=== PATIENT | male | born 1940 | race Two or more races ===

== ENCOUNTER 2017-01-07 23:49 | Inpatient (IN) | payer MEDICARE ==
[~2017-01-07] VITALS: Ht 167.6 cm; Wt 86.2 kg
[2017-01-08] VITALS (26 sets, daily range): BP systolic 104–166; BP diastolic 51–94
[2017-01-08] MEDS ORDERED: PIP/TAZO PER PHARMACY MC PRN (02:15)
[2017-01-08] MEDS ORDERED: IV NORMAL SALINE 1000ML BAG 1,000 ML IV SCH ×2 (02:15→02:30)
[2017-01-08] MEDS: VANCOMYCIN PER PHARMACY MC PRN ×2 (03:01→12:19)
[2017-01-08 04:50] LABS: CALCIUM 7.7 mg/dL (8.5-10.1); CREATININE 7.1 mg/dL (0.7-1.3); GFR 7.6
[2017-01-08 05:18] LABS: BASO % 0 % (0-3); EOS % 0 % (0-3); HEMATOCRIT 25.8 % (39.0-53.0); HEMOGLOBIN 8.4 g/dL (13.0-17.5); LYMPH # 0.9 x10^3/uL (1.0-4.8); LYMPH % 4 % (24-48); MEAN CORPUSCULAR HEMOGLOBIN 29 pg (25-35); MEAN CORPUSCULAR HGB CONC 33 g/dL (31-37); MEAN CORPUSCULAR VOLUME 89 fL (79-100); MONO % 4 % (0-9); NEUT % 92 % (31-73); PLATELET COUNT 199 x10^3/uL (140-400); RED BLOOD COUNT 2.91 x10^6/uL (4.30-5.70); RED CELL DISTRIBUTION WIDTH 14.6 % (11.5-14.5); WHITE BLOOD COUNT 25.7 x10^3/uL (4.0-11.0)
[2017-01-08] MEDS: PIPERACILLIN/TAZOBACTAM 2.25 GM in IV NORMAL SALINE 50ML 50 ML IV SCH ×3 (05:39→22:17)
[2017-01-08 06:14] LABS: BILIRUBIN,URINE NEGATIVE (NEG); GLUCOSE,URINE NEGATIVE (NEG); NITRITE,URINE NEGATIVE (NEG); PH,URINE 5.5; PROTEIN,URINE NEGATIVE (NEG-TRACE); UROBILINOGEN,URINE 0.2 mg/dL (0.2 mg/dL)
[2017-01-08 06:23] LABS: BACTERIA,URINE FEW /HPF (0-FEW)
[2017-01-08 07:49] LABS: ANISOCYTOSIS SLIGHT; PLT ESTIMATE ADEQUATE (ADEQUATE)
--- NOTE | 2017-01-08 07:54 | EKG ---
[facility] [address] [place] [address] Test Date: 2017-01-08 Test Time: 07:51:30 Pat Name: LIZETH GONZALES Department: Room: 105 1 Gender: M Commercial Correspondent: LENCHO : 1940 Requested By: MIKE HUMPHREY Order Number: [id number] Reading MD: Measurements Intervals [place] Rate: 72 P: 54 WA: 162 QRS: 44 QRSD: 104 T: -51 QT: 402 QTc: 442 Interpretive Statements SINUS RHYTHM QRS(T) CONTOUR ABNORMALITY CONSISTENT WITH INFERIOR INFARCT AGE UNDETERMINED ST & T ABNORMALITY, CONSIDER ANTEROLATERAL ISCHEMIA OR LEFT VENTRICULAR STRAIN ABNORMAL ECG RI6.01 No previous ECG available for comparison
[2017-01-08] MEDS ORDERED: MULT1TAB52 PO (09:17)
[2017-01-08] MEDS ORDERED: ASPI-482 PO (09:17)
[2017-01-08] MEDS ORDERED: CLON0.1T PO (09:17)
[2017-01-08] MEDS ORDERED: ASCO500T PO (09:17)
[2017-01-08] MEDS ORDERED: CEPH250C PO (09:17)
[2017-01-08] MEDS ORDERED: GABA600T2 PO (09:17)
[2017-01-08] MEDS ORDERED: LOSA1TAB19 PO (09:17)
[2017-01-08] MEDS ORDERED: OMEG1CAP6 PO (09:17)
[2017-01-08] MEDS ORDERED: PRAV20TA2 PO (09:17)
[2017-01-08] MEDS ORDERED: BISA-42 PO (09:17)
[2017-01-08] MEDS ORDERED: FUROSEMIDE 20 MG/2 ML VIAL. IVP ONE (09:45)
--- NOTE | 2017-01-08 10:27 | RAD ---
Indication fluid overload. A single view of the chest was obtained. No prior imaging of the chest is available. There is mild enlargement of the cardiac silhouette. There are interstitial changes compatible with mild interstitial edema. No consolidated pneumonia is seen. There is no pleural fluid or pneumothorax. IMPRESSION: Mild interstitial edema
[2017-01-08] MEDS ORDERED: FUROSEMIDE 100 MG/10 ML VIAL. IVP ONE (10:30)
[2017-01-08] MEDS ORDERED: HEPARIN for IV BOLUS 10,000 UNIT/10 ML VIAL. ONE (10:43)
[2017-01-08] MEDS ORDERED: CALCIUM GLUCONATE 1,000 MG/10 ML VIAL. IVP ONE (10:45)
[2017-01-08] MEDS ORDERED: MAGNESIUM SULFATE 2GM 50 ML IV PRN (10:45)
[2017-01-08] MEDS ORDERED: SODIUM BICARB ADULT 8.4% 50 MEQ/50 ML DISP.SYRIN. IV ONE ×2 (10:45)
[2017-01-08] MEDS ORDERED: LIDOCAINE 1% / SOD BICARB 8.4% 20 ML VIAL. IJ ONE (10:45)
[2017-01-08] MEDS ORDERED: BISACODYL 10 MG SUPP.RECT. PR PRN (10:45)
--- NOTE | 2017-01-08 10:53 | PDOC2 ---
CONSULT Date of Consult Date of Consult DATE: 01/08/17 TIME: 10:42 Reason for Consult Reason for Consult: Renal Failure Referring Physician Referring Physician: Dr Wilkins Identification/Chief Complaint Chief Complaint SOB Problems: Source Source: Chart review, Patient Social History Lives: with Family Current Medications Current Medications Current Medications Sodium Chloride 1,000 ml @ 150 mls/hr CONT IV ; Start 01/08/17 at 02:15; Status UNV Piperacillin Sod/ Tazobactam Sod (Zosyn Per Pharmacy) 1 each PRN DAILY PRN MC SEE COMMENTS; Start 01/08/17 at 02:15 Vancomycin HCl (Vanco Per Pharmacy) 1 each PRN DAILY PRN MC SEE COMMENTS Last administered on 01/08/17 03:01; Start 01/08/17 at 02:15 Sodium Chloride 1,000 ml @ 150 mls/hr Q6H40M IV Last administered on 03:34; Start 01/08/17 at 02:30 Vancomycin HCl 1 each 1X ONCE MC ; Start 01/09/17 at 22:30; Stop 01/09/17 at 22:31 Piperacillin Sod/ Tazobactam Sod 2.25 gm/Sodium Chloride 50 ml @ 100 mls/hr Q8H IV Last administered on 01/08/17 05:39; Start 01/08/17 at 06:00 Furosemide (Lasix) 20 mg 1X ONCE IVP Last administered on 01/08/17 09:45; Start 01/08/17 at 09:45; Stop 01/08/17 at 09:46; Status DC Furosemide (Lasix) 80 mg 1X ONCE IVP ; Start 01/08/17 at 10:30; Stop at 10:33; Status DC Active Scripts Active Reported Vitamin C (Ascorbic Acid) 500 Mg Tab.chew 500 Mg PO DAILY Multivitamins (Multivitamin) 1 Each Tablet 1 Tab PO DAILY Fish Oil 1,000 Mg Capsule ([place]-3 Fatty Acids/Fish Oil) 1 Each Capsule 1 Each PO Pravastatin Sodium 20 Mg Tablet 1 Tab PO QHS Clonidine Hcl 0.1 Mg Tablet 0.1 Mg PO TID Dulcolax (Bisacodyl) 5 Mg Tablet. 2 Tab PO DAILY Aspir 81 (Aspirin) 81 Mg Tablet.dr 1 Tab PO DAILY Cephalexin 250 Mg Capsule 250 Mg PO BID Gabapentin 600 Mg Tablet 600 Mg PO TID Losartan-Hctz 50-12.5 Mg Tab (Losartan/Hydrochlorothiazide) 1 Each Tablet 1 Tab PO DAILY Allergies Allergies: Coded Allergies: No Known Drug Allergies (Unverified , 01/08/17) ROS Review of System GEN: no Fevers no Chills EYES: no new Visual Complaints ENT: no EN Drainage no Hearing deficiets CVS: + Orthopnea no CP RESP: + SOB + VILLEDA GI: min Nausea no Vomiting + Diarrhea : no Dysuria no Urgency Pt self-caths HEME: no easy bruising no Palp Ly Nodes NEURO no Focal Weakness no Sz PSYCH: no Suicidal Ideation no Depression SKIN: no Rashes ENDO: no Polyuria or Polydipsia no Hot/Cold Intolerance MU SK: occ Arthraigia no Myalgia Physical Exam Physical Exam General Appearance: Awake Alert Oriented x 2-3 In mod-sev resp Distress Eyes: VIsion Unchanged Conjunctiva Normal EN: No EN Drainage Mucous Memb. moist Neck: no JVD + JVP Supple no Thyromegaly CVS: S1 S2 ? Murmur No Gallop No Rub tr Edema Resp: jose Rales ++ Rhonchi ++ Acc. Muscle use GI: BAS +ve NO Bruit Non Tender Non Distended : no CVA tenderness; no Suprapubic Tenderness SKIN: no Rashes Breast Exam deferred Mu.Sk: Adequate ROM no Muscle Atrophy Heme: Unable to palpate Obvious LAD no palp Splenomegaly NEURO: Good Strength and Tone pt is too restless to co-operate with exam Psych: ? Depressed no Active hallucination Vital Signs Vital Signs Date Time Temp Pulse Resp B/P (MAP) Pulse Ox O2 Delivery O2 Flow Rate FiO2 01/08/17 09:00 67 22 138/64 (88) 95 Room Air 01/08/17 07:00 97.5 97.5 Assessment & Plan ESRD : Emergent Dialysis as below F 180 NR 3.5 Hrs 3 K 2.5 Ca 140 Na 40 HC03 Qb 350 + Qd 500+ Heparin 0 Units Uf 3 Kgs or to dry weight as tolerated May give 25-50 gms of 25% Albumin if needed to maintain Hemodynamic stability Treatment plan reviewed and discussed with small arms repairer SEe dictation for other details - including co-ordinating HD Access placement. CCT - 1020 - 1055am (~ 35 min) Labs Labs Laboratory Tests Test 01/08/17 04:00 01/08/17 04:09 White Blood Count 25.7 x10^3/uL (4.0-11.0) Red Blood Count 2.91 x10^6/uL (4.30-5.70) Hemoglobin 8.4 g/dL (13.0-17.5) Hematocrit 25.8 % (39.0-53.0) Mean Corpuscular Volume 89 fL (79-100) Mean Corpuscular Hemoglobin 29 pg (25-35) Mean Corpuscular Hemoglobin Concent 33 g/dL (31-37) Red Cell Distribution Width 14.6 % (11.5-14.5) Platelet Count 199 x10^3/uL (140-400) Neutrophils (%) (Auto) 92 % (31-73) Lymphocytes (%) (Auto) 4 % (24-48) Monocytes (%) (Auto) 4 % (0-9) Eosinophils (%) (Auto) 0 % (0-3) Basophils (%) (Auto) 0 % (0-3) Neutrophils # (Auto) 23.8 x10^3uL (1.8-7.7) Lymphocytes # (Auto) 0.9 x10^3/uL (1.0-4.8) Monocytes # (Auto) 1.0 x10^3/uL (0.0-1.1) Eosinophils # (Auto) 0.0 x10^3/uL (0.0-0.7) Basophils # (Auto) 0.0 x10^3/uL (0.0-0.2) Segmented Neutrophils % 83 % (35-66) Band Neutrophils % 9 % (0-9) Lymphocytes % 2 % (24-48) Atypical Lymphocytes % (Manual) 1 % (0-0) Monocytes % 4 % (0-10) Metamyelocytes % 1 % (0-0) Dohle Bodies Few Platelet Estimate Adequate (ADEQUATE) Anisocytosis Slight Sodium Level 140 mmol/L (136-145) Potassium Level 5.0 mmol/L (3.5-5.1) Chloride Level 109 mmol/L (98-107) Carbon Dioxide Level 14 mmol/L (21-32) Anion Gap 17 (6-14) Blood Urea Nitrogen 86 mg/dL (8-26) Creatinine 7.1 mg/dL (0.7-1.3) Estimated GFR (Cockcroft-Gault) 7.6 Glucose Level 163 mg/dL (70-99) Lactic Acid Level 0.7 mmol/L (0.4-2.0) Calcium Level 7.7 mg/dL (8.5-10.1) Urine Collection Type Unknown Urine Color Yellow Urine Clarity Clear Urine pH 5.5 Urine Specific [place] <=1.005 Urine Protein Negative mg/dL (NEG-TRACE) Urine Glucose (UA) Negative mg/dL (NEG) Urine Ketones (Stick) Negative mg/dL (NEG) Urine Blood Moderate (NEG) Urine Nitrite Negative (NEG) Urine Bilirubin Negative (NEG) Urine Urobilinogen Dipstick 0.2 mg/dL (0.2 mg/dL) Urine Leukocyte Esterase Small (NEG) Urine RBC 1-2 /HPF (0-2) Urine WBC 5-10 /HPF (0-4) Urine Bacteria Few /HPF (0-FEW) Laboratory Tests Test 01/08/17 04:00 01/08/17 04:09 White Blood Count 25.7 x10^3/uL (4.0-11.0) Red Blood Count 2.91 x10^6/uL (4.30-5.70) Hemoglobin 8.4 g/dL (13.0-17.5) Hematocrit 25.8 % (39.0-53.0) Mean Corpuscular Volume 89 fL (79-100) Mean Corpuscular Hemoglobin 29 pg (25-35) Mean Corpuscular Hemoglobin Concent 33 g/dL (31-37) Red Cell Distribution Width 14.6 % (11.5-14.5) Platelet Count 199 x10^3/uL (140-400) Neutrophils (%) (Auto) 92 % (31-73) Lymphocytes (%) (Auto) 4 % (24-48) Monocytes (%) (Auto) 4 % (0-9) Eosinophils (%) (Auto) 0 % (0-3) Basophils (%) (Auto) 0 % (0-3) Neutrophils # (Auto) 23.8 x10^3uL (1.8-7.7) Lymphocytes # (Auto) 0.9 x10^3/uL (1.0-4.8) Monocytes # (Auto) 1.0 x10^3/uL (0.0-1.1) Eosinophils # (Auto) 0.0 x10^3/uL (0.0-0.7) Basophils # (Auto) 0.0 x10^3/uL (0.0-0.2) Segmented Neutrophils % 83 % (35-66) Band Neutrophils % 9 % (0-9) Lymphocytes % 2 % (24-48) Atypical Lymphocytes % (Manual) 1 % (0-0) Monocytes % 4 % (0-10) Metamyelocytes % 1 % (0-0) Dohle Bodies Few Platelet Estimate Adequate (ADEQUATE) Anisocytosis Slight Sodium Level 140 mmol/L (136-145) Potassium Level 5.0 mmol/L (3.5-5.1) Chloride Level 109 mmol/L (98-107) Carbon Dioxide Level 14 mmol/L (21-32) Anion Gap 17 (6-14) Blood Urea Nitrogen 86 mg/dL (8-26) Creatinine 7.1 mg/dL (0.7-1.3) Estimated GFR (Cockcroft-Gault) 7.6 Glucose Level 163 mg/dL (70-99) Lactic Acid Level 0.7 mmol/L (0.4-2.0) Calcium Level 7.7 mg/dL (8.5-10.1) Urine Collection Type Unknown Urine Color Yellow Urine Clarity Clear Urine pH 5.5 Urine Specific [place] <=1.005 Urine Protein Negative mg/dL (NEG-TRACE) Urine Glucose (UA) Negative mg/dL (NEG) Urine Ketones (Stick) Negative mg/dL (NEG) Urine Blood Moderate (NEG) Urine Nitrite Negative (NEG) Urine Bilirubin Negative (NEG) Urine Urobilinogen Dipstick 0.2 mg/dL (0.2 mg/dL) Urine Leukocyte Esterase Small (NEG) Urine RBC 1-2 /HPF (0-2) Urine WBC 5-10 /HPF (0-4) Urine Bacteria Few /HPF (0-FEW) Images Images Indication fluid overload. A single view of the chest was obtained. No prior imaging of the chest is available. There is mild enlargement of the cardiac silhouette. There are interstitial changes compatible with mild interstitial edema. No consolidated pneumonia is seen. There is no pleural fluid or pneumothorax. IMPRESSION: Mild interstitial edema SHEKHAR LOWE MD Jan 08, 2017 10:53
[2017-01-08] MEDS ORDERED: CALCIUM GLUCONATE IV ONE (11:00)
[2017-01-08] MEDS ORDERED: DEXTROSE 5% IV ONE (11:00)
[2017-01-08] MEDS ORDERED: IV NORMAL SALINE 1000ML BAG 1,000 ML IV PRN ×2 (11:10)
[2017-01-08] MEDS ORDERED: DIALYSIS PATIENT. MC PRN (11:15)
[2017-01-08] MEDS ORDERED: LABETALOL 20 MG/4 ML DISP.SYRIN. IVP PRN (11:15)
[2017-01-08] MEDS ORDERED: MIDODRINE 5 MG TABLET PO ONE (11:15)
[2017-01-08] MEDS ORDERED: cloNIDine HCL 0.1 MG TABLET PO PRN (11:15)
[2017-01-08] MEDS ORDERED: ALBUMIN HUMAN 25% 200 ML IV PRN (11:15)
[2017-01-08] MEDS ORDERED: ACETAMINOPHEN 500 MG TABLET PO PRN (11:15)
[2017-01-08] MEDS ORDERED: diphenhydrAMINE 50 MG/ML VIAL IV PRN ×2 (11:15)
--- NOTE | 2017-01-08 11:42 | RAD ---
Ultrasound-guided temporary dialysis catheter 01/08/2017 Clinical Indication: Need for central venous access for dialysis Sterility: All elements of maximal sterile barrier technique including the use of a cap, mask, sterile gown, sterile gloves, large sterile sheet, appropriate hand hygiene, and 2% chlorhexidine for cutaneous antisepsis (or acceptable alternative antiseptic per current guidelines) were followed for this procedure. Consent: The procedure was explained in its entirety to the patient or the patients designated junior sales representative by a member of the treatment team, including a discussion of the risks, benefits and commonly accepted alternatives to the procedure, as well as the expected consequences of no therapy whatsoever. Discussion of the risks included, but was not limited to, those that are most frequent and those that are rare but possibly severe or life-threatening, as well as the possibility of unforeseen complications. Technique and Findings: Following informed consent, the patient was prepped and draped in the usual sterile fashion. Ultrasound interrogation of the right neck revealed patency and compressibility of the right internal jugular vein. A 21-gauge micropuncture needle was used to gain access to this vein after 1% Lidocaine was used to achieve local anesthesia. A hardcopy ultrasound image was recorded. The needle was exchanged over a wire for serial dilators followed by a 20 cm temporary hemodialysis catheter. The catheter flow rates were assessed manually and found to be excellent. The catheter was then flushed, packed with Heparin, capped, and sutured to the skin. Impression: Temporary dialysis catheter by ultrasound guidance at the bedside
--- NOTE | 2017-01-08 11:43 | RAD ---
Single view of the Chest 01/08/2017 1:13 PM Indication: PLACEMENT OF TEMP DIALYSIS CATHETER Comparison: Chest radiograph, earlier today Findings: There is a right internal jugular temporary dialysis catheter with tip the cavoatrial junction. Mild central vascular congestion and interstitial edema is present. Minimal fluid is seen in the right minor fissure consistent with small right pleural effusion. No pneumothorax. Heart size is top normal. Bony thorax is intact. Impression: 1. Right internal jugular dialysis catheter with tip the cavoatrial junction3 2. Persistent interstitial edema and small right pleural effusion
[2017-01-08 11:51] LABS: % SAT IRON 10 % (15-34); IRON,SERUM 21 ug/dL (65-175)
--- NOTE | 2017-01-08 12:19 | HP ---
ADMIT DATE: 01/08/2017 CHIEF COMPLAINT: Renal failure, fevers. HISTORY OF PRESENT ILLNESS: The patient is a 77-year-old gentleman, originally from [place], currently visiting in [place] to witness the promotion of his son to Lieutenant [employer]. He presented to [facility] complaining of rigors, fever, generalized malaise, myalgias and arthralgias. He had temperatures, according to the , up to 103 at the son's home. It had been coming up from [place] with Keflex for a question infection, possibly urinary tract, although neither the patient nor family is sure where the infection is. He does have a history of renal insufficiency with plans for starting dialysis upon his return to [place]. He denies any sick contacts, any upper respiratory symptoms, diarrhea, nausea or vomiting. PAST MEDICAL HISTORY: End-stage renal disease, hypertension, status post TURP, chronic constipation and history of UTI. FAMILY HISTORY: Positive for diabetes. SOCIAL HISTORY: Lives with his . No toxic habits. ALLERGIES: No known drug allergies. MEDICATIONS: MAR reconciled with home medications. REVIEW OF SYSTEMS: The patient has difficulty speaking at this point. His lungs are positive for rales and he is quite short of breath, being unable to speak in full sentences. Denies any pain, feels constipated and severely short of breath. Denies any chest pain at this time. PHYSICAL EXAMINATION: VITAL SIGNS: Currently show a blood pressure of 138/64, heart rate of 67 and respiratory rate at 22. He is afebrile. GENERAL: This is an obese 77-year-old gentleman, awake, alert, in mild distress with respirations. HEENT: Shows no scleral icterus. Oral mucosa is pink and moist. NECK: Supple. LUNGS: Very coarse with rales and upper airway rhonchi. HEART: Has regular rate and rhythm. ABDOMEN: Obese. Positive bowel sounds. Organs could not be palpated. EXTREMITIES: Show no edema. LABORATORY DATA: CBC with a WBC of 25.7, hemoglobin 8.4 and platelets of 99,000. Differential with 83% segmented neutrophils, 9% bands. Chemistries with a BUN and creatinine of 86 and 7.1, CO2 at 14 and calcium at 7.7. Urine with 5-10 WBC and few bacteria. IMAGING: Chest x-ray from this a.m. shows mild interstitial edema. ASSESSMENT AND PLAN: The patient is a 77-year-old gentleman who appeared septic and was therefore treated with copious amounts of IV fluids at [facility] prior to his transfer to the ICU here. He now has developed pulmonary edema to a significant extent given his renal failure. Dr. So from Nephrology has been consulted. He will undergo urgent hemodialysis TRENT. The patient does have hypertension, suspect some cardiac history as well. We will obtain echo. Case was discussed with Dr. Alejandre from Cardiology as well. We will continue home medications for now. Monitor him closely here in the ICU. He has metabolic acidosis, mostly likely related to renal issues. However, the white count with left shift is indicative of some type of infection, at this point unknown. Blood cultures have been drawn and he has been placed on broad-spectrum empiric antibiotics. For prophylaxis, he will be started on H2 blockers as well as heparin. BAHMAN GONZALEZ MD DR: TINY/nts JOB#: [id number] / [id number] EVONNE
--- NOTE | 2017-01-08 13:32 | PDOC ---
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: Dialysis as below F 180 NR 3.5 Hrs 3 K 2.5 Ca 140 Na 40 HC03 Qb 350 + Qd 500+ Heparin 0 Units Uf 3 Kgs or to dry weight as tolerated May give 25-50 gms of 25% Albumin if needed to maintain Hemodynamic stability Treatment plan reviewed and discussed with iv therapy nurse Vitals Vital Signs Vital Signs Date Time Temp Pulse Resp B/P (MAP) Pulse Ox O2 Delivery O2 Flow Rate FiO2 01/08/17 12:53 72 20 153/72 (99) 100 Room Air 01/08/17 12:00 98.1 98.1 Labs Last Labs Laboratory Tests Test 01/08/17 04:00 01/08/17 04:09 01/08/17 11:10 White Blood Count 25.7 x10^3/uL (4.0-11.0) Red Blood Count 2.91 x10^6/uL (4.30-5.70) Hemoglobin 8.4 g/dL (13.0-17.5) Hematocrit 25.8 % (39.0-53.0) Mean Corpuscular Volume 89 fL (79-100) Mean Corpuscular Hemoglobin 29 pg (25-35) Mean Corpuscular Hemoglobin Concent 33 g/dL (31-37) Red Cell Distribution Width 14.6 % (11.5-14.5) Platelet Count 199 x10^3/uL (140-400) Neutrophils (%) (Auto) 92 % (31-73) Lymphocytes (%) (Auto) 4 % (24-48) Monocytes (%) (Auto) 4 % (0-9) Eosinophils (%) (Auto) 0 % (0-3) Basophils (%) (Auto) 0 % (0-3) Neutrophils # (Auto) 23.8 x10^3uL (1.8-7.7) Lymphocytes # (Auto) 0.9 x10^3/uL (1.0-4.8) Monocytes # (Auto) 1.0 x10^3/uL (0.0-1.1) Eosinophils # (Auto) 0.0 x10^3/uL (0.0-0.7) Basophils # (Auto) 0.0 x10^3/uL (0.0-0.2) Segmented Neutrophils % 83 % (35-66) Band Neutrophils % 9 % (0-9) Lymphocytes % 2 % (24-48) Atypical Lymphocytes % (Manual) 1 % (0-0) Monocytes % 4 % (0-10) Metamyelocytes % 1 % (0-0) Dohle Bodies Few Platelet Estimate Adequate (ADEQUATE) Anisocytosis Slight Sodium Level 140 mmol/L (136-145) Potassium Level 5.0 mmol/L (3.5-5.1) Chloride Level 109 mmol/L (98-107) Carbon Dioxide Level 14 mmol/L (21-32) Anion Gap 17 (6-14) Blood Urea Nitrogen 86 mg/dL (8-26) Creatinine 7.1 mg/dL (0.7-1.3) Estimated GFR (Cockcroft-Gault) 7.6 Glucose Level 163 mg/dL (70-99) Lactic Acid Level 0.7 mmol/L (0.4-2.0) Calcium Level 7.7 mg/dL (8.5-10.1) Urine Collection Type Unknown Urine Color Yellow Urine Clarity Clear Urine pH 5.5 Urine Specific [place] <=1.005 Urine Protein Negative mg/dL (NEG-TRACE) Urine Glucose (UA) Negative mg/dL (NEG) Urine Ketones (Stick) Negative mg/dL (NEG) Urine Blood Moderate (NEG) Urine Nitrite Negative (NEG) Urine Bilirubin Negative (NEG) Urine Urobilinogen Dipstick 0.2 mg/dL (0.2 mg/dL) Urine Leukocyte Esterase Small (NEG) Urine RBC 1-2 /HPF (0-2) Urine WBC 5-10 /HPF (0-4) Urine Bacteria Few /HPF (0-FEW) Reticulocyte Count (auto) 1.1 % (0.5-2.5) Iron Level 21 ug/dL (65-175) Total Iron Binding Capacity 206 ug/dL (250-450) Iron Saturation 10 % (15-34) Ferritin 176 ng/mL (26-388) Troponin I Quantitative 2.590 ng/mL (0.000-0.055) Laboratory Tests Test 01/08/17 04:00 01/08/17 04:09 01/08/17 11:10 White Blood Count 25.7 x10^3/uL (4.0-11.0) Red Blood Count 2.91 x10^6/uL (4.30-5.70) Hemoglobin 8.4 g/dL (13.0-17.5) Hematocrit 25.8 % (39.0-53.0) Mean Corpuscular Volume 89 fL (79-100) Mean Corpuscular Hemoglobin 29 pg (25-35) Mean Corpuscular Hemoglobin Concent 33 g/dL (31-37) Red Cell Distribution Width 14.6 % (11.5-14.5) Platelet Count 199 x10^3/uL (140-400) Neutrophils (%) (Auto) 92 % (31-73) Lymphocytes (%) (Auto) 4 % (24-48) Monocytes (%) (Auto) 4 % (0-9) Eosinophils (%) (Auto) 0 % (0-3) Basophils (%) (Auto) 0 % (0-3) Neutrophils # (Auto) 23.8 x10^3uL (1.8-7.7) Lymphocytes # (Auto) 0.9 x10^3/uL (1.0-4.8) Monocytes # (Auto) 1.0 x10^3/uL (0.0-1.1) Eosinophils # (Auto) 0.0 x10^3/uL (0.0-0.7) Basophils # (Auto) 0.0 x10^3/uL (0.0-0.2) Segmented Neutrophils % 83 % (35-66) Band Neutrophils % 9 % (0-9) Lymphocytes % 2 % (24-48) Atypical Lymphocytes % (Manual) 1 % (0-0) Monocytes % 4 % (0-10) Metamyelocytes % 1 % (0-0) Dohle Bodies Few Platelet Estimate Adequate (ADEQUATE) Anisocytosis Slight Sodium Level 140 mmol/L (136-145) Potassium Level 5.0 mmol/L (3.5-5.1) Chloride Level 109 mmol/L (98-107) Carbon Dioxide Level 14 mmol/L (21-32) Anion Gap 17 (6-14) Blood Urea Nitrogen 86 mg/dL (8-26) Creatinine 7.1 mg/dL (0.7-1.3) Estimated GFR (Cockcroft-Gault) 7.6 Glucose Level 163 mg/dL (70-99) Lactic Acid Level 0.7 mmol/L (0.4-2.0) Calcium Level 7.7 mg/dL (8.5-10.1) Urine Collection Type Unknown Urine Color Yellow Urine Clarity Clear Urine pH 5.5 Urine Specific [place] <=1.005 Urine Protein Negative mg/dL (NEG-TRACE) Urine Glucose (UA) Negative mg/dL (NEG) Urine Ketones (Stick) Negative mg/dL (NEG) Urine Blood Moderate (NEG) Urine Nitrite Negative (NEG) Urine Bilirubin Negative (NEG) Urine Urobilinogen Dipstick 0.2 mg/dL (0.2 mg/dL) Urine Leukocyte Esterase Small (NEG) Urine RBC 1-2 /HPF (0-2) Urine WBC 5-10 /HPF (0-4) Urine Bacteria Few /HPF (0-FEW) Reticulocyte Count (auto) 1.1 % (0.5-2.5) Iron Level 21 ug/dL (65-175) Total Iron Binding Capacity 206 ug/dL (250-450) Iron Saturation 10 % (15-34) Ferritin 176 ng/mL (26-388) Troponin I Quantitative 2.590 ng/mL (0.000-0.055) SHEKHAR LOWE MD Jan 08, 2017 13:32
[2017-01-08] MEDS: cloNIDine HCL 0.1 MG TABLET PO SCH ×2 (14:00→21:00)
[2017-01-08] MEDS: GABAPENTIN 300 MG CAPSULE. PO SCH ×2 (14:00→21:00)
[2017-01-08] MEDS: FUROSEMIDE 100 MG/10 ML VIAL. IVP SCH ×2 (14:00→21:00)
[2017-01-08] MEDS: LOSARTAN POTASSIUM 50 MG TABLET. PO SCH (14:00)
--- NOTE | 2017-01-08 14:16 | PDOC2 ---
CONSULT Date of Consult Date of Consult DATE: 01/08/17 TIME: 14:09 Reason for Consult Reason for Consult: Dyspnea Referring Physician Referring Physician: Dr. Rodarte Identification/Chief Complaint Chief Complaint Fever and dyspnea Problems: History of Present Illness Reason for Visit: This patient is a 77-year-old gentleman that came from [facility] after he had gone there to the emergency room. He has end-stage renal disease and is supposed to start doing dialysis but he came on a trip here from [place] to see his son being promoted to [employer]. After arrival he developed some fever and chills and that's why he went to the ER. He developed some confusion and lethargy and was transferred here after arrival here he is evolved into acute respiratory distress and is presently on BiPAP. The patient denies having any previous heart problems. He does give a history of hypertension and renal problems. The pt denies any chest pains. Past Medical History Cardiovascular: HTN Renal/: Chronic renal failure, Benign prostatic enlarg. Social History Lives: with Family Current Medications Current Medications Current Medications Sodium Chloride 1,000 ml @ 150 mls/hr CONT IV ; Start 01/08/17 at 02:15; Status UNV Piperacillin Sod/ Tazobactam Sod (Zosyn Per Pharmacy) 1 each PRN DAILY PRN MC SEE COMMENTS; Start 01/08/17 at 02:15; Stop 01/08/17 at 12:11; Status DC Vancomycin HCl (Vanco Per Pharmacy) 1 each PRN DAILY PRN MC SEE COMMENTS Last administered on 01/08/17 12:19; Start 01/08/17 at 02:15 Sodium Chloride 1,000 ml @ 150 mls/hr Q6H40M IV Last administered on 03:34; Start 01/08/17 at 02:30; Stop 01/08/17 at 10:58; Status DC Vancomycin HCl 1 each 1X ONCE MC ; Start 01/09/17 at 05:00; Stop 01/09/17 at 05:01 Piperacillin Sod/ Tazobactam Sod 2.25 gm/Sodium Chloride 50 ml @ 100 mls/hr Q8H IV Last administered on 01/08/17 05:39; Start 01/08/17 at 06:00 Furosemide (Lasix) 20 mg 1X ONCE IVP Last administered on 01/08/17 09:45; Start 01/08/17 at 09:45; Stop 01/08/17 at 09:46; Status DC Furosemide (Lasix) 80 mg 1X ONCE IVP Last administered on 01/08/17 10:30; Start 01/08/17 at 10:30; Stop 01/08/17 at 10:33; Status DC Sodium Bicarbonate 50 meq 1X ONCE IV Last administered on 01/08/17 11:19; Start 01/08/17 at 10:45; Stop 01/08/17 at 10:49; Status DC Sodium Bicarbonate 50 meq 1X ONCE IV Last administered on 01/08/17 11:19; Start 01/08/17 at 10:45; Stop 01/08/17 at 10:49; Status DC Bisacodyl (Dulcolax Supp) 10 mg PRN DAILY PRN [place] CONSTIPATION; Start 01/08/17 at 10:45 Magnesium Sulfate/ Dextrose 50 ml @ 25 mls/hr PRN DAILY PRN IV for Mag < 1.7 on am labs; Start 01/08/17 at 10:45 Darbepoetin Conrado (Aranesp) 60 mcg WEEKLYHS SQ ; Start 01/08/17 at 21:00 Calcium Gluconate (Calcium Gluconate) 3,000 mg 1X ONCE IVP ; Start 01/08/17 at 10:45; Stop 01/08/17 at 10:46; Status UNV Lidocaine/Sodium Bicarbonate (Buffered Lidocaine 1%) 3 ml 1X ONCE IJ Last administered on 01/08/17 11:10; Start 01/08/17 at 10:45; Stop 01/08/17 at 10 :49; Status DC Heparin Sodium (Porcine) (Heparin Sodium) 2,400 unit 1X ONCE INT CAT Last administered on 01/08/17 11:10; Start 01/08/17 at 10:45; Stop 01/08/17 at 10 :49; Status DC Heparin Sodium/ Sodium Chloride 60 unit 1X ONCE IV Last administered on 11:10; Start 01/08/17 at 10:45; Stop 01/08/17 at 10:49; Status DC Heparin Sodium (Porcine) (Heparin Sodium) 10,000 unit STK-MED ONCE .ROUTE ; Start 01/08/17 at 10:43; Stop 01/08/17 at 10:44; Status DC Calcium Gluconate 3000 mg/Dextrose 130 ml @ 300 mls/hr ONCE ONCE IV Last administered on 01/08/17t 11:19; Start 01/08/17 at 11:00; Stop 01/08/17 at 11 :25; Status DC Furosemide (Lasix) 80 mg TID IVP ; Start 01/08/17 at 14:00; Stop 01/10/17 at 09:01 Sodium Chloride 1,000 ml @ 1,000 mls/hr Q1H PRN IV hypotension; Start at 11:10; Stop 01/08/17 at 17:09 Albumin Human 200 ml @ 200 mls/hr 1X PRN PRN IV Hypotension; Start 01/08/17 at 11:15; Stop 01/08/17 at 17:14 Midodrine (Proamatine) 5 mg 1X ONCE PO ; Start 01/08/17 at 11:15; Stop at 11:16; Status DC Acetaminophen (Tylenol) 500 mg 1X PRN PRN PO MILD PAIN / TEMP; Start 01/08/17 at 11:15; Stop 01/09/17 at 11:14 Diphenhydramine HCl (Benadryl) 25 mg 1X PRN PRN IV ITCHING; Start 01/08/17 at 11:15; Stop 01/09/17 at 11:14 Diphenhydramine HCl (Benadryl) 25 mg 1X PRN PRN IV ITCHING; Start 01/08/17 at 11:15; Stop 01/09/17 at 11:14 Labetalol HCl (Normodyne) 10 mg PRN Q1HR PRN IVP SBP > 180; Start 01/08/17 at 11:15; Stop 01/09/17 at 11:14 Clonidine HCl (Catapres) 0.1 mg 1X PRN PRN PO SBP > 180; Start 01/08/17 at 11: 15; Stop 01/09/17 at 11:14 Sodium Chloride 1,000 ml @ 400 mls/hr Q2H30M PRN IV PATENCY; Start 01/08/17 at 11:10; Stop 01/08/17 at 23:09 Info (PHARMACY MONITORING -- do not chart) 1 each PRN DAILY PRN MC SEE COMMENTS ; Start 01/08/17 at 11:15 Aspirin (Ecotrin) 81 mg DAILY PO ; Start 01/08/17 at 14:00 Bisacodyl (Dulcolax Tab) 10 mg DAILY PO ; Start 01/08/17 at 14:00 Clonidine HCl (Catapres) 0.1 mg TID PO ; Start 01/08/17 at 14:00 Gabapentin (Neurontin) 600 mg TID PO ; Start 01/08/17 at 14:00 Losartan Potassium (Cozaar) 50 mg DAILY PO ; Start 01/08/17 at 14:00 Atorvastatin Calcium (Lipitor) 5 mg QHS PO ; Start 01/08/17 at 21:00 Heparin Sodium (Porcine) (Heparin Sq) 5,000 unit Q12HR SQ ; Start 01/08/17 at 21:00 Active Scripts Active Reported Vitamin C (Ascorbic Acid) 500 Mg Tab.chew 500 Mg PO DAILY Multivitamins (Multivitamin) 1 Each Tablet 1 Tab PO DAILY Fish Oil 1,000 Mg Capsule (Tyro-3 Fatty Acids/Fish Oil) 1 Each Capsule 1 Each PO Pravastatin Sodium 20 Mg Tablet 1 Tab PO QHS Clonidine Hcl 0.1 Mg Tablet 0.1 Mg PO TID Dulcolax (Bisacodyl) 5 Mg Tablet.dr 2 Tab PO DAILY Aspir 81 (Aspirin) 81 Mg Tablet.dr 1 Tab PO DAILY Cephalexin 250 Mg Capsule 250 Mg PO BID Gabapentin 600 Mg Tablet 600 Mg PO TID Losartan-Hctz 50-12.5 Mg Tab (Losartan/Hydrochlorothiazide) 1 Each Tablet 1 Tab PO DAILY Allergies Allergies: Coded Allergies: No Known Drug Allergies (Unverified , 01/08/17) Physical Exam General: Alert, Oriented X3, Cooperative HEENT: PERRLA Lungs: Other (diffuse Rales two thirds of the way up with mild increasing) Heart: Regular rate, Normal S1, Normal S2 Abdomen: Normal bowel sounds, Soft Extremities: Other (1-2+ edema up to the knees) Vitals VITALS Vital Signs Date Time Temp Pulse Resp B/P (MAP) Pulse Ox O2 Delivery O2 Flow Rate FiO2 01/08/17 12:53 72 20 153/72 (99) 100 Room Air 01/08/17 12:00 98.1 98.1 Labs Labs Laboratory Tests Test 01/08/17 04:00 01/08/17 04:09 01/08/17 11:10 White Blood Count 25.7 x10^3/uL (4.0-11.0) Red Blood Count 2.91 x10^6/uL (4.30-5.70) Hemoglobin 8.4 g/dL (13.0-17.5) Hematocrit 25.8 % (39.0-53.0) Mean Corpuscular Volume 89 fL (79-100) Mean Corpuscular Hemoglobin 29 pg (25-35) Mean Corpuscular Hemoglobin Concent 33 g/dL (31-37) Red Cell Distribution Width 14.6 % (11.5-14.5) Platelet Count 199 x10^3/uL (140-400) Neutrophils (%) (Auto) 92 % (31-73) Lymphocytes (%) (Auto) 4 % (24-48) Monocytes (%) (Auto) 4 % (0-9) Eosinophils (%) (Auto) 0 % (0-3) Basophils (%) (Auto) 0 % (0-3) Neutrophils # (Auto) 23.8 x10^3uL (1.8-7.7) Lymphocytes # (Auto) 0.9 x10^3/uL (1.0-4.8) Monocytes # (Auto) 1.0 x10^3/uL (0.0-1.1) Eosinophils # (Auto) 0.0 x10^3/uL (0.0-0.7) Basophils # (Auto) 0.0 x10^3/uL (0.0-0.2) Segmented Neutrophils % 83 % (35-66) Band Neutrophils % 9 % (0-9) Lymphocytes % 2 % (24-48) Atypical Lymphocytes % (Manual) 1 % (0-0) Monocytes % 4 % (0-10) Metamyelocytes % 1 % (0-0) Dohle Bodies Few Platelet Estimate Adequate (ADEQUATE) Anisocytosis Slight Sodium Level 140 mmol/L (136-145) Potassium Level 5.0 mmol/L (3.5-5.1) Chloride Level 109 mmol/L (98-107) Carbon Dioxide Level 14 mmol/L (21-32) Anion Gap 17 (6-14) Blood Urea Nitrogen 86 mg/dL (8-26) Creatinine 7.1 mg/dL (0.7-1.3) Estimated GFR (Cockcroft-Gault) 7.6 Glucose Level 163 mg/dL (70-99) Lactic Acid Level 0.7 mmol/L (0.4-2.0) Calcium Level 7.7 mg/dL (8.5-10.1) Urine Collection Type Unknown Urine Color Yellow Urine Clarity Clear Urine pH 5.5 Urine Specific [place] <=1.005 Urine Protein Negative mg/dL (NEG-TRACE) Urine Glucose (UA) Negative mg/dL (NEG) Urine Ketones (Stick) Negative mg/dL (NEG) Urine Blood Moderate (NEG) Urine Nitrite Negative (NEG) Urine Bilirubin Negative (NEG) Urine Urobilinogen Dipstick 0.2 mg/dL (0.2 mg/dL) Urine Leukocyte Esterase Small (NEG) Urine RBC 1-2 /HPF (0-2) Urine WBC 5-10 /HPF (0-4) Urine Bacteria Few /HPF (0-FEW) Reticulocyte Count (auto) 1.1 % (0.5-2.5) Iron Level 21 ug/dL (65-175) Total Iron Binding Capacity 206 ug/dL (250-450) Iron Saturation 10 % (15-34) Ferritin 176 ng/mL (26-388) Troponin I Quantitative 2.590 ng/mL (0.000-0.055) Laboratory Tests Test 01/08/17 04:00 01/08/17 04:09 01/08/17 11:10 White Blood Count 25.7 x10^3/uL (4.0-11.0) Red Blood Count 2.91 x10^6/uL (4.30-5.70) Hemoglobin 8.4 g/dL (13.0-17.5) Hematocrit 25.8 % (39.0-53.0) Mean Corpuscular Volume 89 fL (79-100) Mean Corpuscular Hemoglobin 29 pg (25-35) Mean Corpuscular Hemoglobin Concent 33 g/dL (31-37) Red Cell Distribution Width 14.6 % (11.5-14.5) Platelet Count 199 x10^3/uL (140-400) Neutrophils (%) (Auto) 92 % (31-73) Lymphocytes (%) (Auto) 4 % (24-48) Monocytes (%) (Auto) 4 % (0-9) Eosinophils (%) (Auto) 0 % (0-3) Basophils (%) (Auto) 0 % (0-3) Neutrophils # (Auto) 23.8 x10^3uL (1.8-7.7) Lymphocytes # (Auto) 0.9 x10^3/uL (1.0-4.8) Monocytes # (Auto) 1.0 x10^3/uL (0.0-1.1) Eosinophils # (Auto) 0.0 x10^3/uL (0.0-0.7) Basophils # (Auto) 0.0 x10^3/uL (0.0-0.2) Segmented Neutrophils % 83 % (35-66) Band Neutrophils % 9 % (0-9) Lymphocytes % 2 % (24-48) Atypical Lymphocytes % (Manual) 1 % (0-0) Monocytes % 4 % (0-10) Metamyelocytes % 1 % (0-0) Dohle Bodies Few Platelet Estimate Adequate (ADEQUATE) Anisocytosis Slight Sodium Level 140 mmol/L (136-145) Potassium Level 5.0 mmol/L (3.5-5.1) Chloride Level 109 mmol/L (98-107) Carbon Dioxide Level 14 mmol/L (21-32) Anion Gap 17 (6-14) Blood Urea Nitrogen 86 mg/dL (8-26) Creatinine 7.1 mg/dL (0.7-1.3) Estimated GFR (Cockcroft-Gault) 7.6 Glucose Level 163 mg/dL (70-99) Lactic Acid Level 0.7 mmol/L (0.4-2.0) Calcium Level 7.7 mg/dL (8.5-10.1) Urine Collection Type Unknown Urine Color Yellow Urine Clarity Clear Urine pH 5.5 [address]rine Specific [place] <=1.005 Urine Protein Negative mg/dL (NEG-TRACE) Urine Glucose (UA) Negative mg/dL (NEG) Urine Ketones (Stick) Negative mg/dL (NEG) Urine Blood Moderate (NEG) Urine Nitrite Negative (NEG) Urine Bilirubin Negative (NEG) Urine Urobilinogen Dipstick 0.2 mg/dL (0.2 mg/dL) Urine Leukocyte Esterase Small (NEG) Urine RBC 1-2 /HPF (0-2) Urine WBC 5-10 /HPF (0-4) Urine Bacteria Few /HPF (0-FEW) Reticulocyte Count (auto) 1.1 % (0.5-2.5) Iron Level 21 ug/dL (65-175) Total Iron Binding Capacity 206 ug/dL (250-450) Iron Saturation 10 % (15-34) Ferritin 176 ng/mL (26-388) Troponin I Quantitative 2.590 ng/mL (0.000-0.055) Assessment/Plan Assessment/Plan This patient with end-stage renal disease appears to be in flash pulmonary edema. He is overloaded and needs emergency dialysis. In addition to that to evaluate the left ventricular function with an echocardiogram and see where we are at with that. The mild elevation of the troponin may be secondary to the renal situation with the acute pulmonary edema. Thank you very much for asking me to participate in the care of this patient ÁLVARO ARIZMENDI MD Jan 08, 2017 14:15
--- NOTE | 2017-01-08 14:52 | CONS ---
DATE OF CONSULTATION: PRIMARY PHYSICIAN: Dr. Wilkins. REASON FOR CONSULTATION: Renal failure. HISTORY OF PRESENT ILLNESS: The patient is a pleasant 77-year-old gentleman from [facility]. He was visiting [place] since the son was deployed. He developed worsening shortness of breath and presented to [facility] ER from where he was transferred to [facility]. He is known to have CKD stage 4/5 and he still is under the care of Dr. Mal Morgan there. He and his tell us that once he got back, there were going to ____ begin dialysis. He is increasingly short of breath. He is extremely restless. He has a raspy cough and coughing up pinkish frothy phlegm at this time. He also complains of significant constipation. He did get some IV fluids at [facility]. The total amount is not known. The Major catheter was placed. He has responded to IV Lasix. The patient is too short of breath to answer questions and has accessory muscle use at this time. It appears that the patient is on the verge of intubation. We will try BiPAP first, pending ABG and pulmonary evaluation. Chest x-ray as noted. He also appears to be grossly tachycardic. I have discussed with the patient at length regarding initiation of dialysis. He was initially reluctant to do so; however, after explaining the severity of potential need for intubation, he has relented and is agreeable to do it. Another 80 mg of Lasix as well as 2 amps of bicarb will be given to alleviate some of his respiratory distress. PAST MEDICAL HISTORY: Significant for sleep apnea; renal disease, unclear etiology; BPH; history of urinary retention and self-cath. He is currently too short of breath to discuss his past medical history also. Does have a history of hypertension and hyperlipidemia if not mentioned previously. FAMILY HISTORY: Sister with known kidney problems. SOCIAL HISTORY: Currently nonsmoker, nondrinker ASSESSMENT AND PLAN: 1. Acute renal failure, baseline creatinine not known. Proceed with dialysis. Renal sonogram will be checked. 2. Chronic kidney disease stage 4/5. Initiation of hemodialysis had been contemplated in [place] per the patient and family report. Hence, we will proceed with emergent dialysis. 3. Severe wide anion gap metabolic acidosis, presumed due to renal failure. Anticipate improvement with dialysis. IV bicarb to help with the shortness of breath. 4. Severe shortness of breath, respiratory distress with impending need for intubation and ventilator use. 80 mg of IV Lasix given once and bicarb will be given to see if this helps. 5. Abdominal discomfort. The patient thinks he needs to have a bowel movement, suppository has been ordered. 6. Hypocalcemia. Albumin, magnesium, etc., are not available at this time and this will be checked. 7. History of benign prostatic hypertrophy. Major catheter ordered. 8. Anemia. Iron profile will be checked. EPO is ordered. 9. Pulmonary edema. Echocardiogram will also be checked. For rest of details, see electronic records. SHEKHAR LOWE MD DR: ISSA/trevor JOB#: [id number] / [id number]
[2017-01-08 17:02] LABS: HCO3 ABG 21 mmol/L (21-28); PCO2 ABG 28 mmHg (35-46); PH ABG 7.49 (7.35-7.45); PO2 ABG 86 mmHg (65-108); SAT O2 ABG 97 % (92-99)
[2017-01-08 17:04] LABS: FIO2 ABG 32
[2017-01-08] MEDS: ASPIRIN ENTERIC COATED 81 MG TABLET.DR. PO SCH (17:48)
[2017-01-08] MEDS: BISACODYL 5 MG TABLET.DR. PO SCH (17:48)
[2017-01-08 19:16] LABS: HEP A IGM ABDY Negative (Negative); HEP B SURFACE ABDY Non Reactive (.)
[2017-01-08] MEDS: ATORVASTATIN CALCIUM 10 MG TABLET. PO SCH (21:00)
[2017-01-08] MEDS ORDERED: DARBEPOETIN ALFA 60 MCG/0.3 ML DISP.SYRIN. SQ SCH (21:00)
[2017-01-08] MEDS: HEPARIN PF for SUB-Q USE 5,000 UNIT/0.5 ML VIAL. SQ SCH (21:00)
[2017-01-09] VITALS (17 sets, daily range): BP systolic 82–138; BP diastolic 37–68
[2017-01-09] MEDS ORDERED: VANCOMYCIN RANDOM LEVEL. MC ONE (05:00)
[2017-01-09 05:56] LABS: ALBUMIN 2.7 g/dL (3.4-5.0); CREATININE 6.1 mg/dL (0.7-1.3); PHOSPHORUS 6.6 mg/dL (2.6-4.7); POTASSIUM 3.4 mmol/L (3.5-5.1)
[2017-01-09] MEDS: PIPERACILLIN/TAZOBACTAM 2.25 GM in IV NORMAL SALINE 50ML 50 ML IV SCH ×3 (07:50→20:52)
[2017-01-09] MEDS ORDERED: IV NORMAL SALINE 1000ML BAG 1,000 ML IV PRN ×2 (08:07)
[2017-01-09] MEDS ORDERED: DIALYSIS PATIENT. MC PRN (08:15)
[2017-01-09] MEDS ORDERED: ALBUMIN HUMAN 25% 200 ML IV PRN (08:15)
--- NOTE | 2017-01-09 08:18 | PDOC ---
PROGRESS NOTES Chief Complaint Chief Complaint Sepsis ESRD ASSESSMENT AND PLAN: 1. Sepsis: leukocytosis improving. on empiric Zosyn and vanco. blood cult NGTD 2. Fluid overload: improving with aggressive lasix IV and HD. clinically stable 3. ESRD: on HD 4. CHF: suspected. echo pending. Dr Alejandre consulted. 5. Troponin leak: most likely 2/2 above. monitor 6. Anemia: inflammatory by iron labs, and renal failure induced. EPO with HD 7. ?UTI: had been on Keflex from home on arrival in ER. UA obtained, culture pending. 8. Prophylaxis: heparin SQ, H2B 9. Dispo: ok to transfer to [place] is consultants agreeable History of Present Illness History of Present Illness feels much improved. no CP, no breathing difficulties. BM this AM Vitals Vitals Vital Signs Date Time Temp Pulse Resp B/P (MAP) Pulse Ox O2 Delivery O2 Flow Rate FiO2 01/09/17 07:27 97.9 72 18 111/58 (75) 98 Nasal Cannula 3.0 97.9 Physical Exam General: Alert, Oriented X3, Cooperative, No acute distress Heart: Regular rate Lungs: Clear Abdomen: Normal bowel sounds, Soft, No tenderness Extremities: No clubbing, No edema Skin: No rashes Labs LABS Laboratory Tests Test 01/08/17 11:10 01/08/17 16:50 01/09/17 05:00 Reticulocyte Count (auto) 1.1 % (0.5-2.5) Iron Level 21 ug/dL (65-175) Total Iron Binding Capacity 206 ug/dL (250-450) Iron Saturation 10 % (15-34) Ferritin 176 ng/mL (26-388) Troponin I Quantitative 2.590 ng/mL (0.000-0.055) Hepatitis A IgM Antibody Negative (Negative) Hepatitis B Surface Antigen Negative (Negative) Hepatitis B Surface Antibody Non reactive (.) Hepatitis B Core Total Antibody Negative (Negative) Hepatitis B Core IgM Antibody Negative (Negative) Hepatitis C Antibody <0.1 s/co ratio O2 Saturation 97 % (92-99) Arterial Blood pH 7.49 (7.35-7.45) Arterial Blood pCO2 at Patient Temp 28 mmHg (35-46) Arterial Blood pO2 at Patient Temp 86 mmHg (65-108) Arterial Blood HCO3 21 mmol/L (21-28) Arterial Blood Base Excess -1 mmol/L (-3-3) FiO2 32 Hemoglobin 9.1 g/dL (13.0-17.5) Sodium Level 140 mmol/L (136-145) Potassium Level 3.4 mmol/L (3.5-5.1) Chloride Level 102 mmol/L (98-107) Carbon Dioxide Level 24 mmol/L (21-32) Anion Gap 14 (6-14) Blood Urea Nitrogen 66 mg/dL (8-26) Creatinine 6.1 mg/dL (0.7-1.3) Estimated GFR (Cockcroft-Gault) 9.0 Glucose Level 119 mg/dL (70-99) Calcium Level 8.0 mg/dL (8.5-10.1) Phosphorus Level 6.6 mg/dL (2.6-4.7) Magnesium Level 1.8 mg/dL (1.8-2.4) Albumin 2.7 g/dL (3.4-5.0) Random Vancomycin Level 17.0 mcg/mL BAHMAN GONZALEZ MD Jan 09, 2017 08:18
[2017-01-09] MEDS: FUROSEMIDE 100 MG/10 ML VIAL. IVP SCH ×3 (09:00→20:51)
[2017-01-09] MEDS: GABAPENTIN 300 MG CAPSULE. PO SCH ×3 (09:00→20:51)
[2017-01-09] MEDS: BISACODYL 5 MG TABLET.DR. PO SCH (09:00)
[2017-01-09] MEDS: cloNIDine HCL 0.1 MG TABLET PO SCH ×3 (09:00→20:51)
[2017-01-09 09:14] LABS: PTH INTACT 380 pg/mL (15-65)
[2017-01-09 09:29] LABS: BASO # 0.1 x10^3/uL (0.0-0.2); BASO % 0 % (0-3); EOS % 1 % (0-3); HEMATOCRIT 27.5 % (39.0-53.0); HEMOGLOBIN 9.2 g/dL (13.0-17.5); LYMPH # 1.3 x10^3/uL (1.0-4.8); LYMPH % 8 % (24-48); MEAN CORPUSCULAR HEMOGLOBIN 29 pg (25-35); MEAN CORPUSCULAR HGB CONC 33 g/dL (31-37); MEAN CORPUSCULAR VOLUME 88 fL (79-100); MONO % 12 % (0-9); NEUT % 79 % (31-73); PLATELET COUNT 238 x10^3/uL (140-400); RED BLOOD COUNT 3.13 x10^6/uL (4.30-5.70); RED CELL DISTRIBUTION WIDTH 14.5 % (11.5-14.5); WHITE BLOOD COUNT 15.8 x10^3/uL (4.0-11.0)
--- NOTE | 2017-01-09 11:19 | RAD ---
Renal ultrasound 01/08/2017 Clinical history: Acute renal failure. Technique: A real-time ultrasound examination of both kidneys and the urinary bladder was performed. Multiple images were obtained. Findings: The right kidney is normal in size. It measures 11.4 cm in length. An echogenic structure which likely represents a nonobstructing renal calculus is seen involving the midpole of the right kidney. This measures 1 cm in size. No additional abnormality of the right kidney is seen. There is no evidence of hydronephrosis. The left kidney is small. It measures 6.2 cm in size. Increased echogenicity of the cortex of the left kidney is seen. The urinary bladder is decompressed. Impression: Left renal atrophy. There is no evidence of hydronephrosis.
--- NOTE | 2017-01-09 11:46 | PDOC ---
Renal-Progress Notes Subjective Notes Notes FEELING BETTER History of Present Illness Hx of present illness STABLE Vitals Vitals Vital Signs Date Time Temp Pulse Resp B/P (MAP) Pulse Ox O2 Delivery O2 Flow Rate FiO2 01/09/17 11:00 82 20 103/62 (76) 98 Nasal Cannula 3.0 01/09/17 10:00 97.7 97.7 Weight Weight [ ] I.O. Intake and Output Intake and Output 01/10/17 07:00 Output Total 255 ml Balance -255 ml Output Urine Total 185 ml Drainage Total 70 ml Labs Labs Laboratory Tests Test 01/08/17 16:50 01/09/17 05:00 01/09/17 08:14 O2 Saturation 97 % (92-99) Arterial Blood pH 7.49 (7.35-7.45) Arterial Blood pCO2 at Patient Temp 28 mmHg (35-46) Arterial Blood pO2 at Patient Temp 86 mmHg (65-108) Arterial Blood HCO3 21 mmol/L (21-28) Arterial Blood Base Excess -1 mmol/L (-3-3) FiO2 32 Sodium Level 140 mmol/L (136-145) Potassium Level 3.4 mmol/L (3.5-5.1) Chloride Level 102 mmol/L (98-107) Carbon Dioxide Level 24 mmol/L (21-32) Anion Gap 14 (6-14) Blood Urea Nitrogen 66 mg/dL (8-26) Creatinine 6.1 mg/dL (0.7-1.3) Estimated GFR (Cockcroft-Gault) 9.0 Glucose Level 119 mg/dL (70-99) Calcium Level 8.0 mg/dL (8.5-10.1) Phosphorus Level 6.6 mg/dL (2.6-4.7) Magnesium Level 1.8 mg/dL (1.8-2.4) Albumin 2.7 g/dL (3.4-5.0) Random Vancomycin Level 17.0 mcg/mL White Blood Count 15.8 x10^3/uL (4.0-11.0) Red Blood Count 3.13 x10^6/uL (4.30-5.70) Hemoglobin 9.2 g/dL (13.0-17.5) Hematocrit 27.5 % (39.0-53.0) Mean Corpuscular Volume 88 fL (79-100) Mean Corpuscular Hemoglobin 29 pg (25-35) Mean Corpuscular Hemoglobin Concent 33 g/dL (31-37) Red Cell Distribution Width 14.5 % (11.5-14.5) Platelet Count 238 x10^3/uL (140-400) Neutrophils (%) (Auto) 79 % (31-73) Lymphocytes (%) (Auto) 8 % (24-48) Monocytes (%) (Auto) 12 % (0-9) Eosinophils (%) (Auto) 1 % (0-3) Basophils (%) (Auto) 0 % (0-3) Neutrophils # (Auto) 12.5 x10^3uL (1.8-7.7) Lymphocytes # (Auto) 1.3 x10^3/uL (1.0-4.8) Monocytes # (Auto) 1.8 x10^3/uL (0.0-1.1) Eosinophils # (Auto) 0.1 x10^3/uL (0.0-0.7) Basophils # (Auto) 0.1 x10^3/uL (0.0-0.2) Micro Micro Microbiology 01/08/17 Blood Culture - Preliminary, Resulted NO GROWTH AFTER 1 DAY Review of Systems Constitutional: yes: malaise, weakness, alert, oriented Ears/Nose/Throat: Yes: no symptom reported Eyes: Yes: no symptom reported Pulmonary: Yes no symptom reported Cardiovascular: Yes no symptom reported Gastrointestional: Yes: no symptom reported Genitourinary: Yes: no symptom reported Musculoskeletal: Yes: no symptom reported Skin: Yes no symptom reported Psychiatric/Neurological: Yes: no symptom reported Endocrine: Yes: no symptom reported Hematologic/Lymphatic: Yes: no symptom reported Physical Exam General Appearance: no apparent distress Skin: warm Respiratory: bilateral CTA Heart: S1S2 Abdomen: soft, bowel sounds present Genitourinary: bladder flat Extremities: pulses present, no edema Neurology: alert, oriented, follow commands Assessment Assessment IMP ESRD ANEMIA SEPSIS LOW K VOLUME OVERLOAD SECONDARY HPTH PLAN ANTIBIOTICS CONT ARANESP START RENVELA BINDER CM TO SET UP OP HD IN [place] WILL ASK IR TO CHANGE TEMP TO TUNNELED HD CATHETER HD TODAY UF TO JELANI VALDES MD Jan 09, 2017 11:46
[2017-01-09] MEDS: ASPIRIN ENTERIC COATED 81 MG TABLET.DR. PO SCH (12:03)
[2017-01-09] MEDS: LOSARTAN POTASSIUM 50 MG TABLET. PO SCH (12:04)
[2017-01-09] MEDS: LACTOBACILLUS RHAMNOSUS GG 1 CAPSULE. PO SCH ×2 (12:04→20:50)
[2017-01-09] MEDS: HEPARIN PF for SUB-Q USE 5,000 UNIT/0.5 ML VIAL. SQ SCH ×2 (12:10→21:01)
[2017-01-09] MEDS: SEVELAMER CARBONATE 800 MG TABLET. PO SCH ×2 (12:28→18:07)
--- NOTE | 2017-01-09 13:44 | PDOC ---
PROGRESS NOTES Subjective Subjective Patient feels much better today. He had dialysis. Objective Objective Vital Signs Date Time Temp Pulse Resp B/P (MAP) Pulse Ox O2 Delivery O2 Flow Rate FiO2 01/09/17 13:17 87 119/58 01/09/17 12:21 Nasal Cannula 3.0 01/09/17 12:00 97.9 18 99 97.9 Intake and Output 01/10/17 07:00 Output Total 255 ml Balance -255 ml Output Urine Total 185 ml Drainage Total 70 ml Physical Exam Physical Exam Lungs moving air better no Rales. Heart no changes Assessment Assessment Patient markedly improved following dialysis. The echocardiogram has not been done yet. I agree with present plan. I would recommend to continue with dialysis lifelong Comment Review of Relevant I have reviewed the following items noelle (where applicable) has been applied. Labs Laboratory Tests Test 01/08/17 01:45 01/08/17 04:00 01/08/17 04:09 01/08/17 11:10 Nasal Screen MRSA (PCR) Negative (Negative) White Blood Count 25.7 x10^3/uL (4.0-11.0) Red Blood Count 2.91 x10^6/uL (4.30-5.70) Hemoglobin 8.4 g/dL (13.0-17.5) Hematocrit 25.8 % (39.0-53.0) Mean Corpuscular Volume 89 fL (79-100) Mean Corpuscular Hemoglobin 29 pg (25-35) Mean Corpuscular Hemoglobin Concent 33 g/dL (31-37) Red Cell Distribution Width 14.6 % (11.5-14.5) Platelet Count 199 x10^3/uL (140-400) Neutrophils (%) (Auto) 92 % (31-73) Lymphocytes (%) (Auto) 4 % (24-48) Monocytes (%) (Auto) 4 % (0-9) Eosinophils (%) (Auto) 0 % (0-3) Basophils (%) (Auto) 0 % (0-3) Neutrophils # (Auto) 23.8 x10^3uL (1.8-7.7) Lymphocytes # (Auto) 0.9 x10^3/uL (1.0-4.8) Monocytes # (Auto) 1.0 x10^3/uL (0.0-1.1) Eosinophils # (Auto) 0.0 x10^3/uL (0.0-0.7) Basophils # (Auto) 0.0 x10^3/uL (0.0-0.2) Segmented Neutrophils % 83 % (35-66) Band Neutrophils % 9 % (0-9) Lymphocytes % 2 % (24-48) Atypical Lymphocytes % (Manual) 1 % (0-0) Monocytes % 4 % (0-10) Metamyelocytes % 1 % (0-0) Dohle Bodies Few Platelet Estimate Adequate (ADEQUATE) Anisocytosis Slight Sodium Level 140 mmol/L (136-145) Potassium Level 5.0 mmol/L (3.5-5.1) Chloride Level 109 mmol/L (98-107) Carbon Dioxide Level 14 mmol/L (21-32) Anion Gap 17 (6-14) Blood Urea Nitrogen 86 mg/dL (8-26) Creatinine 7.1 mg/dL (0.7-1.3) Estimated GFR (Cockcroft-Gault) 7.6 Glucose Level 163 mg/dL (70-99) Lactic Acid Level 0.7 mmol/L (0.4-2.0) Calcium Level 7.7 mg/dL (8.5-10.1) Urine Collection Type Unknown Urine Color Yellow Urine Clarity Clear Urine pH 5.5 Urine Specific [place] <=1.005 Urine Protein Negative mg/dL (NEG-TRACE) Urine Glucose (UA) Negative mg/dL (NEG) Urine Ketones (Stick) Negative mg/dL (NEG) Urine Blood Moderate (NEG) Urine Nitrite Negative (NEG) Urine Bilirubin Negative (NEG) Urine Urobilinogen Dipstick 0.2 mg/dL (0.2 mg/dL) Urine Leukocyte Esterase Small (NEG) Urine RBC 1-2 /HPF (0-2) Urine WBC 5-10 /HPF (0-4) Urine Bacteria Few /HPF (0-FEW) Reticulocyte Count (auto) 1.1 % (0.5-2.5) Estimated GFR (Non- 7 (>59) Iron Level 21 ug/dL (65-175) Total Iron Binding Capacity 206 ug/dL (250-450) Iron Saturation 10 % (15-34) Ferritin 176 ng/mL (26-388) Troponin I Quantitative 2.590 ng/mL (0.000-0.055) EGFR 9 (>59) PTH (Intact) Specimen Description Comment (.) Parathyroid Hormone (Intact) 380 pg/mL (15-65) Calcium (PTH Intact) 7.8 mg/dL (8.6-10.2) Creatinine (PTH Intact) 6.60 mg/dL (0.76-1.27) Phosphorus (PTH Intact) 6.3 mg/dL (2.5-4.5) Hepatitis A IgM Antibody Negative (Negative) Hepatitis B Surface Antigen Negative (Negative) Hepatitis B Surface Antibody Non reactive (.) Hepatitis B Core Total Antibody Negative (Negative) Hepatitis B Core IgM Antibody Negative (Negative) Hepatitis C Antibody <0.1 s/co ratio Test 01/08/17 16:50 01/09/17 05:00 01/09/17 08:14 O2 Saturation 97 % (92-99) Arterial Blood pH 7.49 (7.35-7.45) Arterial Blood pCO2 at Patient Temp 28 mmHg (35-46) Arterial Blood pO2 at Patient Temp 86 mmHg (65-108) Arterial Blood HCO3 21 mmol/L (21-28) Arterial Blood Base Excess -1 mmol/L (-3-3) FiO2 32 Sodium Level 140 mmol/L (136-145) Potassium Level 3.4 mmol/L (3.5-5.1) Chloride Level 102 mmol/L (98-107) Carbon Dioxide Level 24 mmol/L (21-32) Anion Gap 14 (6-14) Blood Urea Nitrogen 66 mg/dL (8-26) Creatinine 6.1 mg/dL (0.7-1.3) Estimated GFR (Cockcroft-Gault) 9.0 Glucose Level 119 mg/dL (70-99) Calcium Level 8.0 mg/dL (8.5-10.1) Phosphorus Level 6.6 mg/dL (2.6-4.7) Magnesium Level 1.8 mg/dL (1.8-2.4) Albumin 2.7 g/dL (3.4-5.0) Random Vancomycin Level 17.0 mcg/mL White Blood Count 15.8 x10^3/uL (4.0-11.0) Red Blood Count 3.13 x10^6/uL (4.30-5.70) Hemoglobin 9.2 g/dL (13.0-17.5) Hematocrit 27.5 % (39.0-53.0) Mean Corpuscular Volume 88 fL (79-100) Mean Corpuscular Hemoglobin 29 pg (25-35) Mean Corpuscular Hemoglobin Concent 33 g/dL (31-37) Red Cell Distribution Width 14.5 % (11.5-14.5) Platelet Count 238 x10^3/uL (140-400) Neutrophils (%) (Auto) 79 % (31-73) Lymphocytes (%) (Auto) 8 % (24-48) Monocytes (%) (Auto) 12 % (0-9) Eosinophils (%) (Auto) 1 % (0-3) Basophils (%) (Auto) 0 % (0-3) Neutrophils # (Auto) 12.5 x10^3uL (1.8-7.7) Lymphocytes # (Auto) 1.3 x10^3/uL (1.0-4.8) Monocytes # (Auto) 1.8 x10^3/uL (0.0-1.1) Eosinophils # (Auto) 0.1 x10^3/uL (0.0-0.7) Basophils # (Auto) 0.1 x10^3/uL (0.0-0.2) Laboratory Tests Test 01/08/17 16:50 01/09/17 05:00 01/09/17 08:14 O2 Saturation 97 % (92-99) Arterial Blood pH 7.49 (7.35-7.45) Arterial Blood pCO2 at Patient Temp 28 mmHg (35-46) Arterial Blood pO2 at Patient Temp 86 mmHg (65-108) Arterial Blood HCO3 21 mmol/L (21-28) Arterial Blood Base Excess -1 mmol/L (-3-3) FiO2 32 Sodium Level 140 mmol/L (136-145) Potassium Level 3.4 mmol/L (3.5-5.1) Chloride Level 102 mmol/L (98-107) Carbon Dioxide Level 24 mmol/L (21-32) Anion Gap 14 (6-14) Blood Urea Nitrogen 66 mg/dL (8-26) Creatinine 6.1 mg/dL (0.7-1.3) Estimated GFR (Cockcroft-Gault) 9.0 Glucose Level 119 mg/dL (70-99) Calcium Level 8.0 mg/dL (8.5-10.1) Phosphorus Level 6.6 mg/dL (2.6-4.7) Magnesium Level 1.8 mg/dL (1.8-2.4) Albumin 2.7 g/dL (3.4-5.0) Random Vancomycin Level 17.0 mcg/mL White Blood Count 15.8 x10^3/uL (4.0-11.0) Red Blood Count 3.13 x10^6/uL (4.30-5.70) Hemoglobin 9.2 g/dL (13.0-17.5) Hematocrit 27.5 % (39.0-53.0) Mean Corpuscular Volume 88 fL (79-100) Mean Corpuscular Hemoglobin 29 pg (25-35) Mean Corpuscular Hemoglobin Concent 33 g/dL (31-37) Red Cell Distribution Width 14.5 % (11.5-14.5) Platelet Count 238 x10^3/uL (140-400) Neutrophils (%) (Auto) 79 % (31-73) Lymphocytes (%) (Auto) 8 % (24-48) Monocytes (%) (Auto) 12 % (0-9) Eosinophils (%) (Auto) 1 % (0-3) Basophils (%) (Auto) 0 % (0-3) Neutrophils # (Auto) 12.5 x10^3uL (1.8-7.7) Lymphocytes # (Auto) 1.3 x10^3/uL (1.0-4.8) Monocytes # (Auto) 1.8 x10^3/uL (0.0-1.1) Eosinophils # (Auto) 0.1 x10^3/uL (0.0-0.7) Basophils # (Auto) 0.1 x10^3/uL (0.0-0.2) Microbiology 01/08/17 Blood Culture - Preliminary, Resulted NO GROWTH AFTER 1 DAY Medications Current Medications Sodium Chloride 1,000 ml @ 150 mls/hr CONT IV ; Start 01/08/17 at 02:15; Status UNV Piperacillin Sod/ Tazobactam Sod (Zosyn Per Pharmacy) 1 each PRN DAILY PRN MC SEE COMMENTS; Start 01/08/17 at 02:15; Stop 01/08/17 at 12:11; Status DC Vancomycin HCl (Vanco Per Pharmacy) 1 each PRN DAILY PRN MC SEE COMMENTS Last administered on 01/08/17 12:19; Start 01/08/17 at 02:15 Sodium Chloride 1,000 ml @ 150 mls/hr Q6H40M IV Last administered on 03:34; Start 01/08/17 at 02:30; Stop 01/08/17 at 10:58; Status DC Vancomycin HCl 1 each 1X ONCE MC ; Start 01/09/17 at 05:00; Stop 01/09/17 at 05:01; Status DC Piperacillin Sod/ Tazobactam Sod 2.25 gm/Sodium Chloride 50 ml @ 100 mls/hr Q8H IV Last administered on 01/09/17 13:18; Start 01/08/17 at 06:00 Furosemide (Lasix) 20 mg 1X ONCE IVP Last administered on 01/08/17 09:45; Start 01/08/17 at 09:45; Stop 01/08/17 at 09:46; Status DC Furosemide (Lasix) 80 mg 1X ONCE IVP Last administered on 01/08/17 10:30; Start 01/08/17 at 10:30; Stop 01/08/17 at 10:33; Status DC Sodium Bicarbonate 50 meq 1X ONCE IV Last administered on 01/08/17 11:19; Start 01/08/17 at 10:45; Stop 01/08/17 at 10:49; Status DC Sodium Bicarbonate 50 meq 1X ONCE IV Last administered on 01/08/17 11:19; Start 01/08/17 at 10:45; Stop 01/08/17 at 10:49; Status DC Bisacodyl (Dulcolax Supp) 10 mg PRN DAILY PRN MS CONSTIPATION; Start 01/08/17 at 10:45 Magnesium Sulfate/ Dextrose 50 ml @ 25 mls/hr PRN DAILY PRN IV for Mag < 1.7 on am labs; Start 01/08/17 at 10:45 Darbepoetin Conrado (Aranesp) 60 mcg WEEKLYHS SQ Last administered on 01/08/17 21:00; Start 01/08/17 at 21:00 Calcium Gluconate (Calcium Gluconate) 3,000 mg 1X ONCE IVP ; Start 01/08/17 at 10:45; Stop 01/08/17 at 10:46; Status UNV Lidocaine/Sodium Bicarbonate (Buffered Lidocaine 1%) 3 ml 1X ONCE IJ Last administered on 01/08/17 11:10; Start 01/08/17 at 10:45; Stop 01/08/17 at 10 :49; Status DC Heparin Sodium (Porcine) (Heparin Sodium) 2,400 unit 1X ONCE INT CAT Last administered on 01/08/17 11:10; Start 01/08/17 at 10:45; Stop 01/08/17 at 10 :49; Status DC Heparin Sodium/ Sodium Chloride 60 unit 1X ONCE IV Last administered on 11:10; Start 01/08/17 at 10:45; Stop 01/08/17 at 10:49; Status DC Heparin Sodium (Porcine) (Heparin Sodium) 10,000 unit STK-MED ONCE .ROUTE ; Start 01/08/17 at 10:43; Stop 01/08/17 at 10:44; Status DC Calcium Gluconate 3000 mg/Dextrose 130 ml @ 300 mls/hr ONCE ONCE IV Last administered on 01/08/17 11:19; Start 01/08/17 at 11:00; Stop 01/08/17 at 11 :25; Status DC Furosemide (Lasix) 80 mg TID IVP Last administered on 01/09/17 13:17; Start 01/08/17 at 14:00; Stop 01/10/17 at 09:01 Sodium Chloride 1,000 ml @ 1,000 mls/hr Q1H PRN IV hypotension; Start at 11:10; Stop 01/08/17 at 17:09; Status DC Albumin Human 200 ml @ 200 mls/hr 1X PRN PRN IV Hypotension; Start 01/08/17 at 11:15; Stop 01/08/17 at 17:14; Status DC Midodrine (Proamatine) 5 mg 1X ONCE PO ; Start 01/08/17 at 11:15; Stop at 11:16; Status DC Acetaminophen (Tylenol) 500 mg 1X PRN PRN PO MILD PAIN / TEMP; Start 01/08/17 at 11:15; Stop 01/09/17 at 11:14; Status DC Diphenhydramine HCl (Benadryl) 25 mg 1X PRN PRN IV ITCHING; Start 01/08/17 at 11:15; Stop 01/09/17 at 11:14; Status DC Diphenhydramine HCl (Benadryl) 25 mg 1X PRN PRN IV ITCHING; Start 01/08/17 at 11:15; Stop 01/09/17 at 11:14; Status DC Labetalol HCl (Normodyne) 10 mg PRN Q1HR PRN IVP SBP > 180; Start 01/08/17 at 11:15; Stop 01/09/17 at 11:14; Status DC Clonidine HCl (Catapres) 0.1 mg 1X PRN PRN PO SBP > 180; Start 01/08/17 at 11: 15; Stop 01/09/17 at 11:14; Status DC Sodium Chloride 1,000 ml @ 400 mls/hr Q2H30M PRN IV PATENCY; Start 01/08/17 at 11:10; Stop 01/08/17 at 23:09; Status DC Info (PHARMACY MONITORING -- do not chart) 1 each PRN DAILY PRN MC SEE COMMENTS ; Start 01/08/17 at 11:15 Aspirin (Ecotrin) 81 mg DAILY PO Last administered on 01/09/17 12:03; Start 01/08/17 at 14:00 Bisacodyl (Dulcolax Tab) 10 mg DAILY PO Last administered on 01/08/17 17:48; Start 01/08/17 at 14:00 Clonidine HCl (Catapres) 0.1 mg TID PO Last administered on 01/09/17 13:17; Start 01/08/17 at 14:00 Gabapentin (Neurontin) 600 mg TID PO Last administered on 01/09/17 13:16; Start 01/08/17 at 14:00 Losartan Potassium (Cozaar) 50 mg DAILY PO Last administered on 01/09/17 12: 04; Start 01/08/17 at 14:00 Atorvastatin Calcium (Lipitor) 5 mg QHS PO Last administered on 01/08/17 21: 00; Start 01/08/17 at 21:00 Heparin Sodium (Porcine) (Heparin Sq) 5,000 unit Q12HR SQ Last administered on 01/09/17 12:10; Start 01/08/17 at 21:00 Lactobacillus Rhamnosus (Culturelle) 1 cap BID PO Last administered on 12:04; Start 01/09/17 at 09:00 Sodium Chloride 1,000 ml @ 1,000 mls/hr Q1H PRN IV hypotension; Start at 08:07; Stop 01/09/17 at 14:06 Albumin Human 200 ml @ 200 mls/hr 1X PRN PRN IV Hypotension; Start 01/09/17 at 08:15; Stop 01/09/17 at 14:14 Sodium Chloride 1,000 ml @ 400 mls/hr Q2H30M PRN IV PATENCY; Start 01/09/17 at 08:07; Stop 01/09/17 at 20:06 Info (PHARMACY MONITORING -- do not chart) 1 each PRN DAILY PRN MC SEE COMMENTS ; Start 01/09/17 at 08:15 Heparin Sodium (Porcine) (Heparin Sq) 5,000 unit Q12HR SQ ; Start 01/09/17 at 21:00; Status UNV Famotidine (Pepcid) 20 mg Q48H PO ; Start 01/09/17 at 21:00 Sevelamer Carbonate (Renvela) 800 mg TIDWMEALS PO Last administered on 12:28; Start 01/09/17 at 12:00 Active Scripts Active Reported Vitamin C (Ascorbic Acid) 500 Mg Tab.chew 500 Mg PO DAILY Multivitamins (Multivitamin) 1 Each Tablet 1 Tab PO DAILY Fish Oil 1,000 Mg Capsule (Dutton-3 Fatty Acids/Fish Oil) 1 Each Capsule 1 Each PO Pravastatin Sodium 20 Mg Tablet 1 Tab PO QHS Clonidine Hcl 0.1 Mg Tablet 0.1 Mg PO TID Dulcolax (Bisacodyl) 5 Mg Tablet.dr 2 Tab PO DAILY Aspir 81 (Aspirin) 81 Mg Tablet.dr 1 Tab PO DAILY Cephalexin 250 Mg Capsule 250 Mg PO BID Gabapentin 600 Mg Tablet 600 Mg PO TID Losartan-Hctz 50-12.5 Mg Tab (Losartan/Hydrochlorothiazide) 1 Each Tablet 1 Tab PO DAILY Vitals/I & O Vital Sign - Last 24 Hours 01/08/17 01/08/17 01/08/17 01/08/17 14:00 14:00 15:00 16:00 Pulse 90 97 Resp 20 22 B/P (MAP) 112/94 (100) 105/68 (80) Pulse Ox 100 100 O2 Delivery BiPAP/CPAP Bi-pap Room Air Bi-pap 01/08/17 01/08/17 01/08/17 01/08/17 16:00 17:00 18:00 19:00 Temp 97.4 97.4 Pulse 82 84 87 85 Resp 18 20 22 17 B/P (MAP) 104/92 (96) 112/62 (79) 122/64 (83) 118/61 (80) Pulse Ox 97 98 99 99 O2 Delivery Nasal Cannula Nasal Cannula Nasal Cannula Nasal Cannula O2 Flow Rate 3.0 3.0 3.0 3.0 01/08/17 01/08/17 01/08/17 01/08/17 20:00 20:00 21:00 21:00 Temp 97.5 97.5 Pulse 82 88 88 Resp 13 19 B/P (MAP) 119/58 (78) 141/69 141/69 (93) Pulse Ox 98 99 O2 Delivery Nasal Cannula Nasal Cannula Nasal Cannula O2 Flow Rate 3.0 3.0 3.0 01/08/17 01/08/17 01/09/17 01/09/17 22:00 23:00 00:00 00:00 Temp 97.5 97.5 Pulse 75 76 70 Resp 15 20 14 B/P (MAP) 111/56 (74) 110/56 (74) 105/56 (72) Pulse Ox 99 99 99 O2 Delivery Nasal Cannula Nasal Cannula Nasal Cannula Nasal Cannula O2 Flow Rate 3.0 3.0 3.0 3.0 01/09/17 01/09/17 01/09/17 01/09/17 01:00 02:00 03:00 04:00 Pulse 66 65 65 Resp 14 12 13 B/P (MAP) 107/56 (73) 82/37 (52) 91/40 (57) Pulse Ox 100 100 99 O2 Delivery Nasal Cannula Nasal Cannula Nasal Cannula Nasal Cannula O2 Flow Rate 3.0 3.0 3.0 3.0 01/09/17 01/09/17 01/09/17 01/09/17 04:00 05:00 06:00 07:20 Temp 98.0 97.7 98.0 97.7 Pulse 75 73 69 78 Resp 20 21 15 18 B/P (MAP) 114/60 (78) 114/59 (77) 104/56 (72) 112/68 (83) Pulse Ox 99 100 100 94 O2 Delivery Nasal Cannula Nasal Cannula Nasal Cannula Nasal Cannula O2 Flow Rate 3.0 3.0 3.0 2.0 01/09/17 01/09/17 01/09/17 01/09/17 07:27 07:30 08:00 08:21 Temp 97.9 97.9 Pulse 72 74 Resp 18 18 B/P (MAP) 111/58 (75) 138/67 (90) Pulse Ox 98 99 O2 Delivery Nasal Cannula Nasal Cannula Nasal Cannula Nasal Cannula O2 Flow Rate 3.0 3.0 3.0 3.0 01/09/17 01/09/17 01/09/17 01/09/17 09:39 10:00 11:00 12:00 Temp 97.9 97.7 97.9 97.9 97.7 97.9 Pulse 81 83 82 76 Resp 18 26 20 18 B/P (MAP) 119/63 (81) 133/61 (85) 103/62 (76) 115/59 (77) Pulse Ox 98 100 98 99 O2 Delivery Nasal Cannula Nasal Cannula Nasal Cannula Nasal Cannula O2 Flow Rate 3.0 3.0 3.0 3.0 01/09/17 01/09/17 01/09/17 12:04 12:21 13:17 Pulse 77 87 B/P (MAP) 115/59 119/58 O2 Delivery Nasal Cannula O2 Flow Rate 3.0 Intake and Output 01/09/17 01/09/17 01/10/17 15:00 23:00 07:00 Output Total 255 ml Balance -255 ml ÁLVARO ARIZMENDI MD Jan 09, 2017 13:44
[2017-01-09] MEDS ORDERED: VANCOMYCIN 500 MG in IV DEXTROSE 5% 100 ML IV ONE (16:00)
[2017-01-09] MEDS: VANCOMYCIN PER PHARMACY MC PRN ×2 (16:01→16:03)
[2017-01-09] MEDS: FAMOTIDINE 20 MG TABLET. PO SCH (20:51)
[2017-01-09] MEDS: ATORVASTATIN CALCIUM 10 MG TABLET. PO SCH (20:51)
[2017-01-09] MEDS ORDERED: HEPARIN PF for SUB-Q USE 5,000 UNIT/0.5 ML VIAL. SQ SCH (21:00)
[2017-01-10 04:01] VITALS: BP 115/58
[2017-01-10 04:59] LABS: BASO # 0.1 x10^3/uL (0.0-0.2); BASO % 1 % (0-3); EOS % 2 % (0-3); HEMATOCRIT 27.1 % (39.0-53.0); LYMPH # 1.5 x10^3/uL (1.0-4.8); LYMPH % 12 % (24-48); MEAN CORPUSCULAR HEMOGLOBIN 29 pg (25-35); MEAN CORPUSCULAR HGB CONC 33 g/dL (31-37); MEAN CORPUSCULAR VOLUME 87 fL (79-100); MONO % 12 % (0-9); NEUT % 74 % (31-73); PLATELET COUNT 238 x10^3/uL (140-400); RED BLOOD COUNT 3.11 x10^6/uL (4.30-5.70); RED CELL DISTRIBUTION WIDTH 14.3 % (11.5-14.5); WHITE BLOOD COUNT 12.6 x10^3/uL (4.0-11.0)
[2017-01-10 05:16] LABS: ALBUMIN 2.7 g/dL (3.4-5.0); CALCIUM 7.8 mg/dL (8.5-10.1); CREATININE 5.4 mg/dL (0.7-1.3); GFR 10.4; PHOSPHORUS 5.6 mg/dL (2.6-4.7); POTASSIUM 3.7 mmol/L (3.5-5.1)
[2017-01-10] MEDS: PIPERACILLIN/TAZOBACTAM 2.25 GM in IV NORMAL SALINE 50ML 50 ML IV SCH ×3 (06:25→20:01)
[2017-01-10 07:00] VITALS: BP 109/58
[2017-01-10] MEDS: SEVELAMER CARBONATE 800 MG TABLET. PO SCH ×3 (08:00→17:23)
[2017-01-10] MEDS: cloNIDine HCL 0.1 MG TABLET PO SCH ×3 (09:00→20:03)
[2017-01-10] MEDS: FUROSEMIDE 100 MG/10 ML VIAL. IVP SCH (09:00)
[2017-01-10] MEDS: HEPARIN PF for SUB-Q USE 5,000 UNIT/0.5 ML VIAL. SQ SCH ×2 (09:00→20:09)
[2017-01-10] MEDS: GABAPENTIN 300 MG CAPSULE. PO SCH ×3 (09:00→20:03)
[2017-01-10] MEDS: LOSARTAN POTASSIUM 50 MG TABLET. PO SCH (09:00)
[2017-01-10] MEDS: BISACODYL 5 MG TABLET.DR. PO SCH (09:00)
[2017-01-10] MEDS: ASPIRIN ENTERIC COATED 81 MG TABLET.DR. PO SCH (09:00)
[2017-01-10 10:38] VITALS: BP_SYST 113; BP_SYST 93; BP_DIAS 54; BP_DIAS 56
--- NOTE | 2017-01-10 11:07 | PDOC ---
PROGRESS NOTES Chief Complaint Chief Complaint Sepsis ESRD ASSESSMENT AND PLAN: 1. Sepsis: leukocytosis improving. on empiric Zosyn and vanco. blood cult NGTD 2. Fluid overload: improving with aggressive lasix IV and HD. clinically stable 3. ESRD: on HD 4. CHF: suspected. echo pending. Dr Alejandre consulted. 5. Troponin leak: most likely 2/2 above. monitor 6. Anemia: inflammatory by iron labs, and renal failure induced. EPO with HD 7. ?UTI: had been on Keflex from home on arrival in ER. UA obtained, culture pending. 8. Prophylaxis: heparin SQ, H2B 9. Perm cath placement in AM in anticipation of D/C soon; SW to arrange O/P F/ U History of Present Illness History of Present Illness feels great, no respir issues. no CP Vitals Vitals Vital Signs Date Time Temp Pulse Resp B/P (MAP) Pulse Ox O2 Delivery O2 Flow Rate FiO2 01/10/17 10:38 97.9 74 18 113/56 (75) 97 Nasal Cannula 2.0 97.9 Physical Exam General: Alert, Oriented X3, Cooperative, No acute distress Heart: Regular rate Lungs: Clear Abdomen: Normal bowel sounds, Soft, No tenderness Extremities: No clubbing, No edema Skin: No rashes Labs LABS Laboratory Tests Test 01/10/17 03:45 01/10/17 04:00 White Blood Count 12.6 x10^3/uL (4.0-11.0) Red Blood Count 3.11 x10^6/uL (4.30-5.70) Hemoglobin 9.0 g/dL (13.0-17.5) Hematocrit 27.1 % (39.0-53.0) Mean Corpuscular Volume 87 fL (79-100) Mean Corpuscular Hemoglobin 29 pg (25-35) Mean Corpuscular Hemoglobin Concent 33 g/dL (31-37) Red Cell Distribution Width 14.3 % (11.5-14.5) Platelet Count 238 x10^3/uL (140-400) Neutrophils (%) (Auto) 74 % (31-73) Lymphocytes (%) (Auto) 12 % (24-48) Monocytes (%) (Auto) 12 % (0-9) Eosinophils (%) (Auto) 2 % (0-3) Basophils (%) (Auto) 1 % (0-3) Neutrophils # (Auto) 9.4 x10^3uL (1.8-7.7) Lymphocytes # (Auto) 1.5 x10^3/uL (1.0-4.8) Monocytes # (Auto) 1.5 x10^3/uL (0.0-1.1) Eosinophils # (Auto) 0.2 x10^3/uL (0.0-0.7) Basophils # (Auto) 0.1 x10^3/uL (0.0-0.2) Sodium Level 136 mmol/L (136-145) Potassium Level 3.7 mmol/L (3.5-5.1) Chloride Level 99 mmol/L (98-107) Carbon Dioxide Level 28 mmol/L (21-32) Anion Gap 9 (6-14) Blood Urea Nitrogen 49 mg/dL (8-26) Creatinine 5.4 mg/dL (0.7-1.3) Estimated GFR (Cockcroft-Gault) 10.4 Glucose Level 113 mg/dL (70-99) Calcium Level 7.8 mg/dL (8.5-10.1) Phosphorus Level 5.6 mg/dL (2.6-4.7) Magnesium Level 1.9 mg/dL (1.8-2.4) Albumin 2.7 g/dL (3.4-5.0) BAHMAN GONZALEZ MD Jan 10, 2017 11:07
--- NOTE | 2017-01-10 11:38 | PDOC ---
Renal-Progress Notes Subjective Notes Notes FEELING BETTER History of Present Illness Hx of present illness STABLE Vitals Vitals Vital Signs Date Time Temp Pulse Resp B/P (MAP) Pulse Ox O2 Delivery O2 Flow Rate FiO2 01/10/17 10:38 97.9 74 18 113/56 (75) 97 Nasal Cannula 2.0 97.9 Weight Weight [ ] I.O. Intake and Output Intake and Output 01/11/17 07:00 Intake Total 240 ml Balance 240 ml Intake Oral 240 ml Labs Labs Laboratory Tests Test 01/10/17 03:45 01/10/17 04:00 White Blood Count 12.6 x10^3/uL (4.0-11.0) Red Blood Count 3.11 x10^6/uL (4.30-5.70) Hemoglobin 9.0 g/dL (13.0-17.5) Hematocrit 27.1 % (39.0-53.0) Mean Corpuscular Volume 87 fL (79-100) Mean Corpuscular Hemoglobin 29 pg (25-35) Mean Corpuscular Hemoglobin Concent 33 g/dL (31-37) Red Cell Distribution Width 14.3 % (11.5-14.5) Platelet Count 238 x10^3/uL (140-400) Neutrophils (%) (Auto) 74 % (31-73) Lymphocytes (%) (Auto) 12 % (24-48) Monocytes (%) (Auto) 12 % (0-9) Eosinophils (%) (Auto) 2 % (0-3) Basophils (%) (Auto) 1 % (0-3) Neutrophils # (Auto) 9.4 x10^3uL (1.8-7.7) Lymphocytes # (Auto) 1.5 x10^3/uL (1.0-4.8) Monocytes # (Auto) 1.5 x10^3/uL (0.0-1.1) Eosinophils # (Auto) 0.2 x10^3/uL (0.0-0.7) Basophils # (Auto) 0.1 x10^3/uL (0.0-0.2) Sodium Level 136 mmol/L (136-145) Potassium Level 3.7 mmol/L (3.5-5.1) Chloride Level 99 mmol/L (98-107) Carbon Dioxide Level 28 mmol/L (21-32) Anion Gap 9 (6-14) Blood Urea Nitrogen 49 mg/dL (8-26) Creatinine 5.4 mg/dL (0.7-1.3) Estimated GFR (Cockcroft-Gault) 10.4 Glucose Level 113 mg/dL (70-99) Calcium Level 7.8 mg/dL (8.5-10.1) Phosphorus Level 5.6 mg/dL (2.6-4.7) Magnesium Level 1.9 mg/dL (1.8-2.4) Albumin 2.7 g/dL (3.4-5.0) Micro Micro Microbiology 01/08/17 Blood Culture - Preliminary, Resulted NO GROWTH AFTER 2 DAYS Review of Systems Constitutional: yes: malaise, weakness, alert, oriented Ears/Nose/Throat: Yes: no symptom reported Eyes: Yes: no symptom reported Pulmonary: Yes no symptom reported Cardiovascular: Yes no symptom reported Gastrointestional: Yes: no symptom reported Genitourinary: Yes: no symptom reported Musculoskeletal: Yes: no symptom reported Skin: Yes no symptom reported Psychiatric/Neurological: Yes: no symptom reported Endocrine: Yes: no symptom reported Hematologic/Lymphatic: Yes: no symptom reported Physical Exam General Appearance: no apparent distress Skin: warm Respiratory: bilateral CTA Heart: S1S2 Abdomen: soft, bowel sounds present Genitourinary: bladder flat Extremities: pulses present, no edema Neurology: alert, oriented, follow commands Assessment Assessment IMP ESRD ANEMIA SEPSIS VOLUME OVERLOAD-BETTER SECONDARY HPTH PLAN ANTIBIOTICS CONT ARANESP CONT RENVELA BINDER CM TO SET UP OP HD IN [place] AT [facility] UNDER DR DEE 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
--- NOTE | 2017-01-10 12:19 | PDOC ---
Provider Note Provider Note Urine for Dr. Alejandre. No complaints of shortness of breath and he feels much better. Lungs are clear. He has had 2 sessions of hemodialysis. USAMA RIVERA MD Jan 10, 2017 12:19
--- NOTE | 2017-01-10 13:57 | CARD ---
APPROVED REPORT EXAM: Two-dimensional and M-mode echocardiogram with Doppler and color Doppler. Other Information Quality : Good INDICATION Congestive Heart Failure 2D DIMENSIONS RVDd3.7 (2.9-3.5cm)Left Atrium(2D)3.9 (1.6-4.0cm) IVSd1.4 (0.7-1.1cm)Aortic Root(2D)3.5 (2.0-3.7cm) LVDd4.5 (3.9-5.9cm)LVOT Diameter2.1 (1.8-2.4cm) PWd1.4 (0.7-1.1cm)LVDs3.3 (2.5-4.0cm) FS (%) 26.8 %SV48.9 ml LVEF(%)52.5 (>50%) Mitral Valve MV E Uzljtvro46.4cm/sMV DECEL [id number] MV A Serveign31.3cm/sE/A Ratio1.2 TDI Lateral E' P. V4.57cm/sMedial E' P. V6.56cm/s E/Lateral E'13.4E/Medial E'9.4 Tricuspid Valve TR P. Lucbyzcc563rc/sRAP [id number] TR Peak Gr.[id number] Pulmonary Vein S1 Tsgtehsj81.2cm/sS2 Fwvgievs02.77cm/s D2 Enkqudvy62.8cm/s LEFT VENTRICLE The left ventricle is normal size. There is mild to moderate concentric left ventricular hypertrophy. The left ventricular systolic function is normal. The Ejection Fraction is 55-60%. RIGHT VENTRICLE The right ventricle is normal size. The right ventricular systolic function is normal. ATRIA The left atrium size is normal. The right atrium size is normal. The interatrial septum is intact wit h no evidence for an atrial septal defect or patent foramen ovale as noted on 2-D or Doppler imaging. AORTIC VALVE The aortic valve is calcified but opens well. Doppler and Color Flow revealed no significant aortic r egurgitation. There is no significant aortic valvular stenosis. MITRAL VALVE The mitral valve is normal in structure and function. There is no evidence of mitral valve prolapse. There is no mitral valve stenosis. Doppler and Color-flow revealed trace mitral regurgitation. TRICUSPID VALVE The tricuspid valve is normal in structure and function. Doppler and Color Flow revealed trace tricus pid regurgitation. The PA pressure was estimated at 19 mmHg. There is no tricuspid valve stenosis. PULMONIC VALVE The pulmonary valve is normal in structure and function. Doppler and Color Flow revealed trace pulmon ic valvular regurgitation. There is no pulmonic valvular stenosis. GREAT VESSELS The aortic root is normal in size. The ascending aorta is mildly dilated at 3.6 cm. The IVC is normal in size and collapses >50% with inspiration. PERICARDIAL EFFUSION There is no evidence of significant pericardial effusion. Critical Notification Critical Value: No <Conclusion> The left ventricular systolic function is normal. The Ejection Fraction is 55-60%. Trace mitral regurgitation. Trace tricuspid regurgitation. The PA pressure was estimated at 19 mmHg. There is no evidence of significant pericardial effusion.
[2017-01-10] MEDS: VANCOMYCIN PER PHARMACY MC PRN (14:58)
[2017-01-10 15:00] VITALS: BP 131/63
[2017-01-10] MEDS: ATORVASTATIN CALCIUM 10 MG TABLET. PO SCH (20:01)
[2017-01-10 20:03] VITALS: BP 113/49
[2017-01-10 23:24] VITALS: BP 113/55
[2017-01-11] VITALS (13 sets, daily range): BP systolic 101–157; BP diastolic 52–67
[2017-01-11] MEDS: PIPERACILLIN/TAZOBACTAM 2.25 GM in IV NORMAL SALINE 50ML 50 ML IV SCH ×3 (05:23→20:46)
[2017-01-11 06:05] LABS: BASO % 0 % (0-3); EOS % 2 % (0-3); HEMATOCRIT 25.3 % (39.0-53.0); HEMOGLOBIN 8.4 g/dL (13.0-17.5); LYMPH # 1.2 x10^3/uL (1.0-4.8); LYMPH % 11 % (24-48); MEAN CORPUSCULAR HEMOGLOBIN 29 pg (25-35); MEAN CORPUSCULAR HGB CONC 33 g/dL (31-37); MEAN CORPUSCULAR VOLUME 88 fL (79-100); MONO % 11 % (0-9); NEUT % 76 % (31-73); PLATELET COUNT 237 x10^3/uL (140-400); RED BLOOD COUNT 2.88 x10^6/uL (4.30-5.70); RED CELL DISTRIBUTION WIDTH 14.1 % (11.5-14.5); WHITE BLOOD COUNT 11.6 x10^3/uL (4.0-11.0)
[2017-01-11 06:39] LABS: ALBUMIN 2.5 g/dL (3.4-5.0); CALCIUM 7.9 mg/dL (8.5-10.1); CREATININE 7.1 mg/dL (0.7-1.3); GFR 7.6; PHOSPHORUS 6.5 mg/dL (2.6-4.7); POTASSIUM 3.3 mmol/L (3.5-5.1)
[2017-01-11] MEDS: SEVELAMER CARBONATE 800 MG TABLET. PO SCH ×4 (08:00→19:10)
--- NOTE | 2017-01-11 08:36 | PDOC ---
PROGRESS NOTES Subjective Subjective Patient reports no shortness of breath or chest pain and reports doing much better. Volume status appears improved. Is awaiting tunnel cath placement today. Objective Objective Vital Signs Date Time Temp Pulse Resp B/P (MAP) Pulse Ox O2 Delivery O2 Flow Rate FiO2 01/11/17 08:00 Room Air 01/11/17 07:00 98.0 67 19 121/53 (75) 96 98.0 01/10/17 10:38 2.0 Physical Exam Physical Exam General: no acute distress, pleasant, sitting upright in bed HEENT: EOMI, moist mucous membranes, neck supple, no JVD CV: regular rate and rhythm without murmurs Resp: Clear to auscultation bilaterally; no wheezing, rales, or rhonchi; no increased work of breathing abd: soft, non-tender, non-distended ext: warm, no clubbing, cyanosis, or edema Assessment Assessment Assessment and Plan Mr Mcmanus is a 76 year old male who was admitted with flash pulmonary edema and fluid overload. -ESRD--on HD, last dialyzed Wednesday and Wednesday; placement of tunnel cath today -Fluid overload--volume status has improved with diuresis and HD; appears euvolemic on physical exam today -CHF--Echocardiogram completed; shows The left ventricular systolic function is normal. The Ejection Fraction is 60%. Trace mitral regurgitation. Trace tricuspid regurgitation. The PA pressure was estimated at 19 mmHg. The pt may be discharged soon when OK with the other services. Comment Review of Relevant I have reviewed the following items noelle (where applicable) has been applied. Labs Laboratory Tests Test 01/10/17 03:45 01/10/17 04:00 01/11/17 05:14 White Blood Count 12.6 x10^3/uL (4.0-11.0) 11.6 x10^3/uL (4.0-11.0) Red Blood Count 3.11 x10^6/uL (4.30-5.70) 2.88 x10^6/uL (4.30-5.70) Hemoglobin 9.0 g/dL (13.0-17.5) 8.4 g/dL (13.0-17.5) Hematocrit 27.1 % (39.0-53.0) 25.3 % (39.0-53.0) Mean Corpuscular Volume 87 fL (79-100) 88 fL (79-100) Mean Corpuscular Hemoglobin 29 pg (25-35) 29 pg (25-35) Mean Corpuscular Hemoglobin Concent 33 g/dL (31-37) 33 g/dL (31-37) Red Cell Distribution Width 14.3 % (11.5-14.5) 14.1 % (11.5-14.5) Platelet Count 238 x10^3/uL (140-400) 237 x10^3/uL (140-400) Neutrophils (%) (Auto) 74 % (31-73) 76 % (31-73) Lymphocytes (%) (Auto) 12 % (24-48) 11 % (24-48) Monocytes (%) (Auto) 12 % (0-9) 11 % (0-9) Eosinophils (%) (Auto) 2 % (0-3) 2 % (0-3) Basophils (%) (Auto) 1 % (0-3) 0 % (0-3) Neutrophils # (Auto) 9.4 x10^3uL (1.8-7.7) 8.8 x10^3uL (1.8-7.7) Lymphocytes # (Auto) 1.5 x10^3/uL (1.0-4.8) 1.2 x10^3/uL (1.0-4.8) Monocytes # (Auto) 1.5 x10^3/uL (0.0-1.1) 1.3 x10^3/uL (0.0-1.1) Eosinophils # (Auto) 0.2 x10^3/uL (0.0-0.7) 0.2 x10^3/uL (0.0-0.7) Basophils # (Auto) 0.1 x10^3/uL (0.0-0.2) 0.0 x10^3/uL (0.0-0.2) Sodium Level 136 mmol/L (136-145) 138 mmol/L (136-145) Potassium Level 3.7 mmol/L (3.5-5.1) 3.3 mmol/L (3.5-5.1) Chloride Level 99 mmol/L (98-107) 99 mmol/L (98-107) Carbon Dioxide Level 28 mmol/L (21-32) 25 mmol/L (21-32) Anion Gap 9 (6-14) 14 (6-14) Blood Urea Nitrogen 49 mg/dL (8-26) 63 mg/dL (8-26) Creatinine 5.4 mg/dL (0.7-1.3) 7.1 mg/dL (0.7-1.3) Estimated GFR (Cockcroft-Gault) 10.4 7.6 Glucose Level 113 mg/dL (70-99) 121 mg/dL (70-99) Calcium Level 7.8 mg/dL (8.5-10.1) 7.9 mg/dL (8.5-10.1) Phosphorus Level 5.6 mg/dL (2.6-4.7) 6.5 mg/dL (2.6-4.7) Magnesium Level 1.9 mg/dL (1.8-2.4) 2.1 mg/dL (1.8-2.4) Albumin 2.7 g/dL (3.4-5.0) 2.5 g/dL (3.4-5.0) Laboratory Tests Test 01/11/17 05:14 White Blood Count 11.6 x10^3/uL (4.0-11.0) Red Blood Count 2.88 x10^6/uL (4.30-5.70) Hemoglobin 8.4 g/dL (13.0-17.5) Hematocrit 25.3 % (39.0-53.0) Mean Corpuscular Volume 88 fL (79-100) Mean Corpuscular Hemoglobin 29 pg (25-35) Mean Corpuscular Hemoglobin Concent 33 g/dL (31-37) Red Cell Distribution Width 14.1 % (11.5-14.5) Platelet Count 237 x10^3/uL (140-400) Neutrophils (%) (Auto) 76 % (31-73) Lymphocytes (%) (Auto) 11 % (24-48) Monocytes (%) (Auto) 11 % (0-9) Eosinophils (%) (Auto) 2 % (0-3) Basophils (%) (Auto) 0 % (0-3) Neutrophils # (Auto) 8.8 x10^3uL (1.8-7.7) Lymphocytes # (Auto) 1.2 x10^3/uL (1.0-4.8) Monocytes # (Auto) 1.3 x10^3/uL (0.0-1.1) Eosinophils # (Auto) 0.2 x10^3/uL (0.0-0.7) Basophils # (Auto) 0.0 x10^3/uL (0.0-0.2) Sodium Level 138 mmol/L (136-145) Potassium Level 3.3 mmol/L (3.5-5.1) Chloride Level 99 mmol/L (98-107) Carbon Dioxide Level 25 mmol/L (21-32) Anion Gap 14 (6-14) Blood Urea Nitrogen 63 mg/dL (8-26) Creatinine 7.1 mg/dL (0.7-1.3) Estimated GFR (Cockcroft-Gault) 7.6 Glucose Level 121 mg/dL (70-99) Calcium Level 7.9 mg/dL (8.5-10.1) Phosphorus Level 6.5 mg/dL (2.6-4.7) Magnesium Level 2.1 mg/dL (1.8-2.4) Albumin 2.5 g/dL (3.4-5.0) Microbiology 01/08/17 Blood Culture - Preliminary, Resulted NO GROWTH AFTER 3 DAYS 01/08/17 Urine Culture - Final, Complete 01/08/17 Urine Culture Result 1 (KADEEM) - Final, Complete Medications Current Medications Sodium Chloride 1,000 ml @ 150 mls/hr CONT IV ; Start 01/08/17 at 02:15; Status UNV Piperacillin Sod/ Tazobactam Sod (Zosyn Per Pharmacy) 1 each PRN DAILY PRN MC SEE COMMENTS; Start 01/08/17 at 02:15; Stop 01/08/17 at 12:11; Status DC Vancomycin HCl (Vanco Per Pharmacy) 1 each PRN DAILY PRN MC SEE COMMENTS Last administered on 01/10/17t 14:58; Start 01/08/17 at 02:15 Sodium Chloride 1,000 ml @ 150 mls/hr Q6H40M IV Last administered on t 03:34; Start 01/08/17 at 02:30; Stop 01/08/17 at 10:58; Status DC Vancomycin HCl 1 each 1X ONCE MC ; Start 01/09/17 at 05:00; Stop 01/09/17 at 05:01; Status DC Piperacillin Sod/ Tazobactam Sod 2.25 gm/Sodium Chloride 50 ml @ 100 mls/hr Q8H IV Last administered on 01/11/17 05:23; Start 01/08/17 at 06:00 Furosemide (Lasix) 20 mg 1X ONCE IVP Last administered on 01/08/17 09:45; Start 01/08/17 at 09:45; Stop 01/08/17 at 09:46; Status DC Furosemide (Lasix) 80 mg 1X ONCE IVP Last administered on 01/08/17 10:30; Start 01/08/17 at 10:30; Stop 01/08/17 at 10:33; Status DC Sodium Bicarbonate 50 meq 1X ONCE IV Last administered on 01/08/17 11:19; Start 01/08/17 at 10:45; Stop 01/08/17 at 10:49; Status DC Sodium Bicarbonate 50 meq 1X ONCE IV Last administered on 01/08/17 11:19; Start 01/08/17 at 10:45; Stop 01/08/17 at 10:49; Status DC Bisacodyl (Dulcolax Supp) 10 mg PRN DAILY PRN ND CONSTIPATION; Start 01/08/17 at 10:45 Magnesium Sulfate/ Dextrose 50 ml @ 25 mls/hr PRN DAILY PRN IV for Mag < 1.7 on am labs; Start 01/08/17 at 10:45 Darbepoetin Conrado (Aranesp) 60 mcg WEEKLYHS SQ Last administered on 01/08/17 21:00; Start 01/08/17 at 21:00 Calcium Gluconate (Calcium Gluconate) 3,000 mg 1X ONCE IVP ; Start 01/08/17 at 10:45; Stop 01/08/17 at 10:46; Status UNV Lidocaine/Sodium Bicarbonate (Buffered Lidocaine 1%) 3 ml 1X ONCE IJ Last administered on 01/08/17 11:10; Start 01/08/17 at 10:45; Stop 01/08/17 at 10 :49; Status DC Heparin Sodium (Porcine) (Heparin Sodium) 2,400 unit 1X ONCE INT CAT Last administered on 01/08/17 11:10; Start 01/08/17 at 10:45; Stop 01/08/17 at 10 :49; Status DC Heparin Sodium/ Sodium Chloride 60 unit 1X ONCE IV Last administered on t 11:10; Start 01/08/17 at 10:45; Stop 01/08/17 at 10:49; Status DC Heparin Sodium (Porcine) (Heparin Sodium) 10,000 unit STK-MED ONCE .ROUTE ; Start 01/08/17 at 10:43; Stop 01/08/17 at 10:44; Status DC Calcium Gluconate 3000 mg/Dextrose 130 ml @ 300 mls/hr ONCE ONCE IV Last administered on 01/08/17 11:19; Start 01/08/17 at 11:00; Stop 01/08/17 at 11 :25; Status DC Furosemide (Lasix) 80 mg TID IVP Last administered on 01/10/17 09:00; Start 01/08/17 at 14:00; Stop 01/10/17 at 09:01; Status DC Sodium Chloride 1,000 ml @ 1,000 mls/hr Q1H PRN IV hypotension; Start at 11:10; Stop 01/08/17 at 17:09; Status DC Albumin Human 200 ml @ 200 mls/hr 1X PRN PRN IV Hypotension; Start 01/08/17 at 11:15; Stop 01/08/17 at 17:14; Status DC Midodrine (Proamatine) 5 mg 1X ONCE PO ; Start 01/08/17 at 11:15; Stop at 11:16; Status DC Acetaminophen (Tylenol) 500 mg 1X PRN PRN PO MILD PAIN / TEMP; Start 01/08/17 at 11:15; Stop 01/09/17 at 11:14; Status DC Diphenhydramine HCl (Benadryl) 25 mg 1X PRN PRN IV ITCHING; Start 01/08/17 at 11:15; Stop 01/09/17 at 11:14; Status DC Diphenhydramine HCl (Benadryl) 25 mg 1X PRN PRN IV ITCHING; Start 01/08/17 at 11:15; Stop 01/09/17 at 11:14; Status DC Labetalol HCl (Normodyne) 10 mg PRN Q1HR PRN IVP SBP > 180; Start 01/08/17 at 11:15; Stop 01/09/17 at 11:14; Status DC Clonidine HCl (Catapres) 0.1 mg 1X PRN PRN PO SBP > 180; Start 01/08/17 at 11: 15; Stop 01/09/17 at 11:14; Status DC Sodium Chloride 1,000 ml @ 400 mls/hr Q2H30M PRN IV PATENCY; Start 01/08/17 at 11:10; Stop 01/08/17 at 23:09; Status DC Info (PHARMACY MONITORING -- do not chart) 1 each PRN DAILY PRN MC SEE COMMENTS ; Start 01/08/17 at 11:15; Stop 01/09/17 at 14:22; Status DC Aspirin (Ecotrin) 81 mg DAILY PO Last administered on 01/10/17 09:00; Start 01/08/17 at 14:00 Bisacodyl (Dulcolax Tab) 10 mg DAILY PO Last administered on 01/10/17 09:00; Start 01/08/17 at 14:00 Clonidine HCl (Catapres) 0.1 mg TID PO Last administered on 01/10/17 20:03; Start 01/08/17 at 14:00 Gabapentin (Neurontin) 600 mg TID PO Last administered on 01/10/17 20:03; Start 01/08/17 at 14:00 Losartan Potassium (Cozaar) 50 mg DAILY PO Last administered on 01/10/17 09: 00; Start 01/08/17 at 14:00 Atorvastatin Calcium (Lipitor) 5 mg QHS PO Last administered on 01/10/17 20: 01; Start 01/08/17 at 21:00 Heparin Sodium (Porcine) (Heparin Sq) 5,000 unit Q12HR SQ Last administered on 01/10/17 20:09; Start 01/08/17 at 21:00 Lactobacillus Rhamnosus (Culturelle) 1 cap BID PO Last administered on 20:50; Start 01/09/17 at 09:00; Stop 01/10/17 at 08:08; Status DC Sodium Chloride 1,000 ml @ 1,000 mls/hr Q1H PRN IV hypotension; Start at 08:07; Stop 01/09/17 at 14:06; Status DC Albumin Human 200 ml @ 200 mls/hr 1X PRN PRN IV Hypotension; Start 01/09/17 at 08:15; Stop 01/09/17 at 14:14; Status DC Sodium Chloride 1,000 ml @ 400 mls/hr Q2H30M PRN IV PATENCY; Start 01/09/17 at 08:07; Stop 01/09/17 at 20:06; Status DC Info (PHARMACY MONITORING -- do not chart) 1 each PRN DAILY PRN MC SEE COMMENTS ; Start 01/09/17 at 08:15 Heparin Sodium (Porcine) (Heparin Sq) 5,000 unit Q12HR SQ ; Start 01/09/17 at 21:00; Status UNV Famotidine (Pepcid) 20 mg Q48H PO Last administered on 01/09/17 20:51; Start 01/09/17 at 21:00 Sevelamer Carbonate (Renvela) 800 mg TIDWMEALS PO Last administered on 17:23; Start 01/09/17 at 12:00 Vancomycin HCl 500 mg/Dextrose 100 ml @ 100 mls/hr ONCE ONCE IV Last administered on 01/09/17 18:09; Start 01/09/17 at 16:00; Stop 01/09/17 at 16 :59; Status DC Lactobacillus Rhamnosus (Culturelle) 1 cap BID PO ; Start 01/11/17 at 21:00 Active Scripts Active Reported Vitamin C (Ascorbic Acid) 500 Mg Tab.chew 500 Mg PO DAILY Multivitamins (Multivitamin) 1 Each Tablet 1 Tab PO DAILY Fish Oil 1,000 Mg Capsule (Jackson-3 Fatty Acids/Fish Oil) 1 Each Capsule 1 Each PO Pravastatin Sodium 20 Mg Tablet 1 Tab PO QHS Clonidine Hcl 0.1 Mg Tablet 0.1 Mg PO TID Dulcolax (Bisacodyl) 5 Mg Tablet.dr 2 Tab PO DAILY Aspir 81 (Aspirin) 81 Mg Tablet.dr 1 Tab PO DAILY Cephalexin 250 Mg Capsule 250 Mg PO BID Gabapentin 600 Mg Tablet 600 Mg PO TID Losartan-Hctz 50-12.5 Mg Tab (Losartan/Hydrochlorothiazide) 1 Each Tablet 1 Tab PO DAILY Vitals/I & O Vital Sign - Last 24 Hours 01/10/17 01/10/17 01/10/17 01/10/17 09:00 09:00 10:38 14:39 Temp 97.9 97.9 Pulse 74 74 74 74 Resp 18 B/P (MAP) 113/56 113/56 113/56 (75) 113/56 Pulse Ox 97 O2 Delivery Nasal Cannula O2 Flow Rate 2.0 01/10/17 01/10/17 01/10/17 01/10/17 15:00 20:00 20:03 20:03 Temp 98.0 97.7 98.0 97.7 Pulse 69 78 75 Resp 18 18 B/P (MAP) 131/63 (85) 113/49 113/49 (70) Pulse Ox 97 97 O2 Delivery Room Air Room Air Room Air 01/10/17 01/11/17 01/11/17 01/11/17 23:24 03:30 07:00 08:00 Temp 97.5 97.8 98.0 97.5 97.8 98.0 Pulse 67 71 67 Resp 20 18 19 B/P (MAP) 113/55 (74) 116/54 (74) 121/53 (75) Pulse Ox 96 97 96 O2 Delivery Room Air Room Air Room Air Room Air ÁLVARO ARIZMENDI MD Jan 11, 2017 08:36
[2017-01-11] MEDS: cloNIDine HCL 0.1 MG TABLET PO SCH ×3 (09:00→20:46)
[2017-01-11] MEDS: GABAPENTIN 300 MG CAPSULE. PO SCH ×2 (09:00→19:11)
[2017-01-11] MEDS: BISACODYL 5 MG TABLET.DR. PO SCH (09:00)
[2017-01-11 09:22] LABS: INR 1.1 (0.8-1.1); PROTHROMBIN TIME PATIENT 13.5 SEC (11.7-14.0)
--- NOTE | 2017-01-11 11:42 | PDOC ---
Renal-Progress Notes Subjective Notes Notes FEELS WELL History of Present Illness Hx of present illness STABLE Vitals Vitals Vital Signs Date Time Temp Pulse Resp B/P (MAP) Pulse Ox O2 Delivery O2 Flow Rate FiO2 01/11/17 08:00 Room Air 01/11/17 07:00 98.0 67 19 121/53 (75) 96 98.0 01/10/17 10:38 2.0 Weight Weight [ ] Labs Labs Laboratory Tests Test 01/11/17 05:14 01/11/17 09:00 White Blood Count 11.6 x10^3/uL (4.0-11.0) Red Blood Count 2.88 x10^6/uL (4.30-5.70) Hemoglobin 8.4 g/dL (13.0-17.5) Hematocrit 25.3 % (39.0-53.0) Mean Corpuscular Volume 88 fL (79-100) Mean Corpuscular Hemoglobin 29 pg (25-35) Mean Corpuscular Hemoglobin Concent 33 g/dL (31-37) Red Cell Distribution Width 14.1 % (11.5-14.5) Platelet Count 237 x10^3/uL (140-400) Neutrophils (%) (Auto) 76 % (31-73) Lymphocytes (%) (Auto) 11 % (24-48) Monocytes (%) (Auto) 11 % (0-9) Eosinophils (%) (Auto) 2 % (0-3) Basophils (%) (Auto) 0 % (0-3) Neutrophils # (Auto) 8.8 x10^3uL (1.8-7.7) Lymphocytes # (Auto) 1.2 x10^3/uL (1.0-4.8) Monocytes # (Auto) 1.3 x10^3/uL (0.0-1.1) Eosinophils # (Auto) 0.2 x10^3/uL (0.0-0.7) Basophils # (Auto) 0.0 x10^3/uL (0.0-0.2) Sodium Level 138 mmol/L (136-145) Potassium Level 3.3 mmol/L (3.5-5.1) Chloride Level 99 mmol/L (98-107) Carbon Dioxide Level 25 mmol/L (21-32) Anion Gap 14 (6-14) Blood Urea Nitrogen 63 mg/dL (8-26) Creatinine 7.1 mg/dL (0.7-1.3) Estimated GFR (Cockcroft-Gault) 7.6 Glucose Level 121 mg/dL (70-99) Calcium Level 7.9 mg/dL (8.5-10.1) Phosphorus Level 6.5 mg/dL (2.6-4.7) Magnesium Level 2.1 mg/dL (1.8-2.4) Albumin 2.5 g/dL (3.4-5.0) Prothrombin Time 13.5 SEC (11.7-14.0) Prothromb Time International Ratio 1.1 (0.8-1.1) Activated Partial Thromboplast Time 24 SEC (24-38) Micro Micro Microbiology 01/08/17 Blood Culture - Preliminary, Resulted NO GROWTH AFTER 3 DAYS 01/08/17 Urine Culture - Final, Complete 01/08/17 Urine Culture Result 1 ([facility]) - Final, Complete Review of Systems Constitutional: yes: malaise, weakness, alert, oriented Ears/Nose/Throat: Yes: no symptom reported Eyes: Yes: no symptom reported Pulmonary: Yes no symptom reported Cardiovascular: Yes no symptom reported Gastrointestional: Yes: no symptom reported Genitourinary: Yes: no symptom reported Musculoskeletal: Yes: no symptom reported Skin: Yes no symptom reported Psychiatric/Neurological: Yes: no symptom reported Endocrine: Yes: no symptom reported Hematologic/Lymphatic: Yes: no symptom reported Physical Exam General Appearance: no apparent distress Skin: warm Respiratory: bilateral CTA Heart: S1S2 Abdomen: soft, bowel sounds present Genitourinary: bladder flat Extremities: pulses present, no edema Neurology: alert, oriented, follow commands Assessment Assessment IMP ESRD ANEMIA SEPSIS VOLUME OVERLOAD-BETTER SECONDARY HPTH PLAN ANTIBIOTICS CONT ARANESP CONT RENVELA BINDER CM TO SET UP OP HD IN [place] AT [facility] UNDER DR DEE ERVIN HIS LAYOUT TECHNICIAN THERE WILL ASK IR TO CHANGE TEMP TO TUNNELED HD CATHETER TODAY HD TODAY UF TO JELANI VALDES MD Jan 11, 2017 11:42
--- NOTE | 2017-01-11 12:14 | PDOC ---
PROGRESS NOTES Chief Complaint Chief Complaint Sepsis ESRD ASSESSMENT AND PLAN: 1. Sepsis: leukocytosis improving. on empiric Zosyn and vanco. blood cult NGTD 2. Fluid overload: improving with aggressive lasix IV and HD. clinically stable 3. ESRD: on HD 4. CHF: suspected. echo pending. Dr Alejandre consulted. 5. Troponin leak: most likely 2/2 above. monitor 6. Anemia: inflammatory by iron labs, and renal failure induced. EPO with HD 7. ?UTI: had been on Keflex from home on arrival in ER. UA obtained, culture pending. 8. Prophylaxis: heparin SQ, H2B 9. Perm cath placement in AM in anticipation of D/C soon; SW to arrange O/P F/ U with renal History of Present Illness History of Present Illness feels great, no respir issues. no CP Vitals Vitals Vital Signs Date Time Temp Pulse Resp B/P (MAP) Pulse Ox O2 Delivery O2 Flow Rate FiO2 01/11/17 08:00 Room Air 01/11/17 07:00 98.0 67 19 121/53 (75) 96 98.0 01/10/17 10:38 2.0 Physical Exam General: Alert, Oriented X3, Cooperative, No acute distress Heart: Regular rate Lungs: Clear Abdomen: Normal bowel sounds, Soft, No tenderness Extremities: No clubbing, No edema Skin: No rashes Labs LABS Laboratory Tests Test 01/11/17 05:14 01/11/17 09:00 White Blood Count 11.6 x10^3/uL (4.0-11.0) Red Blood Count 2.88 x10^6/uL (4.30-5.70) Hemoglobin 8.4 g/dL (13.0-17.5) Hematocrit 25.3 % (39.0-53.0) Mean Corpuscular Volume 88 fL (79-100) Mean Corpuscular Hemoglobin 29 pg (25-35) Mean Corpuscular Hemoglobin Concent 33 g/dL (31-37) Red Cell Distribution Width 14.1 % (11.5-14.5) Platelet Count 237 x10^3/uL (140-400) Neutrophils (%) (Auto) 76 % (31-73) Lymphocytes (%) (Auto) 11 % (24-48) Monocytes (%) (Auto) 11 % (0-9) Eosinophils (%) (Auto) 2 % (0-3) Basophils (%) (Auto) 0 % (0-3) Neutrophils # (Auto) 8.8 x10^3uL (1.8-7.7) Lymphocytes # (Auto) 1.2 x10^3/uL (1.0-4.8) Monocytes # (Auto) 1.3 x10^3/uL (0.0-1.1) Eosinophils # (Auto) 0.2 x10^3/uL (0.0-0.7) Basophils # (Auto) 0.0 x10^3/uL (0.0-0.2) Sodium Level 138 mmol/L (136-145) Potassium Level 3.3 mmol/L (3.5-5.1) Chloride Level 99 mmol/L (98-107) Carbon Dioxide Level 25 mmol/L (21-32) Anion Gap 14 (6-14) Blood Urea Nitrogen 63 mg/dL (8-26) Creatinine 7.1 mg/dL (0.7-1.3) Estimated GFR (Cockcroft-Gault) 7.6 Glucose Level 121 mg/dL (70-99) Calcium Level 7.9 mg/dL (8.5-10.1) Phosphorus Level 6.5 mg/dL (2.6-4.7) Magnesium Level 2.1 mg/dL (1.8-2.4) Albumin 2.5 g/dL (3.4-5.0) Prothrombin Time 13.5 SEC (11.7-14.0) Prothromb Time International Ratio 1.1 (0.8-1.1) Activated Partial Thromboplast Time 24 SEC (24-38) BAHMAN GONZALEZ MD Jan 11, 2017 12:14
[2017-01-11] MEDS ORDERED: HEPARIN for IV BOLUS 10,000 UNIT/10 ML VIAL. ONE (13:36)
[2017-01-11] MEDS ORDERED: LIDOCAINE 1%/EPI 1:100,000 20 ML VIAL. ONE (13:36)
[2017-01-11] MEDS ORDERED: MIDAZOLAM HCL/PF 2 MG/2 ML VIAL. ONE (13:48)
[2017-01-11] MEDS ORDERED: fentaNYL PF VIAL 100 MCG/2 ML VIAL ONE (13:48)
[2017-01-11] MEDS ORDERED: LIDOCAINE 1%/EPI 1:100,000 20 ML VIAL. INJ ONE (14:00)
[2017-01-11] MEDS ORDERED: fentaNYL PF VIAL 100 MCG/2 ML VIAL IV ONE (14:30)
[2017-01-11] MEDS ORDERED: MIDAZOLAM HCL/PF 2 MG/2 ML VIAL. IV ONE (14:30)
[2017-01-11] MEDS: LOSARTAN POTASSIUM 50 MG TABLET. PO SCH (15:04)
[2017-01-11] MEDS: ASPIRIN ENTERIC COATED 81 MG TABLET.DR. PO SCH (15:04)
[2017-01-11] MEDS: VANCOMYCIN PER PHARMACY MC PRN (15:17)
[2017-01-11] MEDS: HEPARIN PF for SUB-Q USE 5,000 UNIT/0.5 ML VIAL. SQ SCH ×2 (15:19→20:52)
[2017-01-11] MEDS ORDERED: VANCOMYCIN 500 MG in IV DEXTROSE 5% 100 ML IV SCH (16:00)
--- NOTE | 2017-01-11 16:12 | RAD ---
Conversion of a right internal jugular temporary dialysis catheter to a tunnelled hemodialysis catheter 01/11/2017 Indication: Need for long-term dialysis access Discussion: The risks and benefits of the procedure discussed the patient. Informed consent was obtained. A timeout procedure was performed. The right neck and chest were prepped and draped using maximum sterile barrier technique. All elements of maximal sterile barrier technique including the use of a cap, mask, sterile gown, sterile gloves, large sterile sheet, appropriate hand hygiene, and 2% chlorhexidine for cutaneous antisepsis (or acceptable alternative antiseptic per current guidelines) were followed for this procedure. The pre-existing dialysis catheter was evaluated under fluoroscopy and found to be in good position. 1% lidocaine was administered over the anterior chest wall the right. A 23 cm tip to cuff palindrome dialysis catheter was tunneled from the anterior chest wall to the venotomy site. The previous catheter was removed over wire and following serial dilatation a peel-away sheath was advanced to the right atrium. The catheter was advanced through this sheath such the tip at the proximal right atrium. Catheter was found to flush and aspirate normally. Catheter was secured in place. No immediate complications were identified. Fluoro time 0.9 minutes Dose Area Product 2 Gycm2 The procedures performed under conscious sedation including continuous cardiopulmonary monitoring via dedicated sedation nurse. Sedation time: 20 minutes Impression: Conversion of a temporary dialysis catheter to a tunneled hemodialysis catheter as described
--- NOTE | 2017-01-11 17:27 | CARD ---
APPROVED REPORT EXAM: Two-dimensional and M-mode echocardiogram with Doppler and color Doppler. Other Information Quality : Good INDICATION Congestive Heart Failure 2D DIMENSIONS RVDd2.8 (2.9-3.5cm)Left Atrium(2D)4.6 (1.6-4.0cm) IVSd1.7 (0.7-1.1cm)Aortic Root(2D)3.0 (2.0-3.7cm) LVDd4.6 (3.9-5.9cm)LVOT Diameter2.2 (1.8-2.4cm) PWd1.1 (0.7-1.1cm)LVDs3.6 (2.5-4.0cm) FS (%) 22.6 %SV44.5 ml LVEF(%)45.0 (>50%) Aortic Valve AoV Peak Eros.152.8cm/sAoV VTI33.8cm AO Peak GR.9.3mmHgLVOT Peak Eros.75.9cm/s LVOT VTI 18.44cmAO Mean GR.5mmHg BARB (VMAX)1.44or9KYU (VTI)2.13cm2 Mitral Valve MV E Lfyvugcc945.4cm/sMV DECEL [id number] MV A Sullwztd609.7cm/sMV TWK94pz E/A Ratio0.9MVA (PHT)3.16cm2 TDI E/Lateral E'22.6E/Medial E'20.6 Tricuspid Valve TR P. Orjvifeg811st/sRAP [id number] TR Peak Gr.46emLyRXWN51ccZg Pulmonary Vein S1 Dxglzvuf81.0cm/sD2 Khlvtixs09.5cm/s LEFT VENTRICLE The left ventricle is normal size. There is moderate asymmetric septal left ventricular hypertrophy. The LV Ejection Fraction is 45%. There is hypokinesis in the anteroseptal wall. Transmitral Doppler f low pattern is Grade I-abnormal relaxation pattern. RIGHT VENTRICLE The right ventricle is normal size. The right ventricular systolic function is normal. ATRIA The left atrium is mildly dilated. The right atrium size is normal. The interatrial septum is intact with no evidence for an atrial septal defect or patent foramen ovale as noted on 2-D or Doppler imagi ng. AORTIC VALVE The aortic valve is normal in structure Doppler and Color Flow revealed trace aortic regurgitation. T here is no significant aortic valvular stenosis. MITRAL VALVE The mitral valve is calcified but opens well. There is no evidence of mitral valve prolapse. There is no mitral valve stenosis. Doppler and Color-flow revealed trace mitral regurgitation. TRICUSPID VALVE The tricuspid valve is normal in structure Doppler and Color Flow revealed physiological tricuspid re gurgitation. The PA pressure was estimated at 30 mmHg. There is no tricuspid valve stenosis. PULMONIC VALVE The pulmonary valve is normal in structure Doppler and Color Flow revealed mild pulmonic valvular reg urgitation. There is no pulmonic valvular stenosis. GREAT VESSELS The aortic root is normal in size. The ascending aorta is normal in size. The IVC is normal in size a nd collapses >50% with inspiration. PERICARDIAL EFFUSION There is a trace of pericardial effusion. Critical Notification Critical Value: No <Conclusion> The LV Ejection Fraction is 45%. There is moderate asymmetric septal left ventricular hypertrophy. Transmitral Doppler flow pattern is Grade I-abnormal relaxation pattern. The left atrium is mildly dilated. The right atrium size is normal. Doppler and Color Flow revealed trace aortic regurgitation. Doppler and Color-flow revealed trace mitral regurgitation. Doppler and Color Flow revealed physiological tricuspid regurgitation. The PA pressure was estimated at 30 mmHg. Doppler and Color Flow revealed mild pulmonic valvular regurgitation. There is a trace of pericardial effusion.
[2017-01-11] MEDS: ATORVASTATIN CALCIUM 10 MG TABLET. PO SCH (20:46)
[2017-01-11] MEDS: LACTOBACILLUS RHAMNOSUS GG 1 CAPSULE. PO SCH (20:46)
[2017-01-11] MEDS: FAMOTIDINE 20 MG TABLET. PO SCH (20:47)
[2017-01-12 03:21] VITALS: BP 127/58
[2017-01-12] MEDS: PIPERACILLIN/TAZOBACTAM 2.25 GM in IV NORMAL SALINE 50ML 50 ML IV SCH ×3 (04:34→21:01)
[2017-01-12 04:51] LABS: BASO # 0.1 x10^3/uL (0.0-0.2); BASO % 0 % (0-3); EOS % 2 % (0-3); HEMATOCRIT 29.8 % (39.0-53.0); HEMOGLOBIN 9.9 g/dL (13.0-17.5); LYMPH % 14 % (24-48); MEAN CORPUSCULAR HEMOGLOBIN 29 pg (25-35); MEAN CORPUSCULAR HGB CONC 33 g/dL (31-37); MEAN CORPUSCULAR VOLUME 88 fL (79-100); MONO % 10 % (0-9); NEUT % 74 % (31-73); PLATELET COUNT 314 x10^3/uL (140-400); RED BLOOD COUNT 3.41 x10^6/uL (4.30-5.70); RED CELL DISTRIBUTION WIDTH 13.9 % (11.5-14.5); WHITE BLOOD COUNT 14.5 x10^3/uL (4.0-11.0)
[2017-01-12 05:21] LABS: CALCIUM 8.2 mg/dL (8.5-10.1); CREATININE 5.9 mg/dL (0.7-1.3); GFR 9.4; PHOSPHORUS 6.1 mg/dL (2.6-4.7); POTASSIUM 3.4 mmol/L (3.5-5.1)
[2017-01-12 07:00] VITALS: BP 127/57
[2017-01-12] MEDS: BISACODYL 5 MG TABLET.DR. PO SCH (09:00)
[2017-01-12] MEDS: LACTOBACILLUS RHAMNOSUS GG 1 CAPSULE. PO SCH ×2 (09:04→21:00)
[2017-01-12] MEDS: ASPIRIN ENTERIC COATED 81 MG TABLET.DR. PO SCH (09:05)
[2017-01-12] MEDS: SEVELAMER CARBONATE 800 MG TABLET. PO SCH ×3 (09:05→17:17)
[2017-01-12] MEDS: LOSARTAN POTASSIUM 50 MG TABLET. PO SCH (09:06)
[2017-01-12] MEDS: cloNIDine HCL 0.1 MG TABLET PO SCH ×3 (09:06→21:00)
[2017-01-12] MEDS: HEPARIN PF for SUB-Q USE 5,000 UNIT/0.5 ML VIAL. SQ SCH ×2 (09:13→21:03)
--- NOTE | 2017-01-12 09:34 | PDOC ---
PROGRESS NOTES Subjective Subjective Patient reports doing well with no chest pain, shortness of breath, or flank pain. tunnel cath placed yesterday and HD session yesterday. good appetite Objective Objective Vital Signs Date Time Temp Pulse Resp B/P (MAP) Pulse Ox O2 Delivery O2 Flow Rate FiO2 01/12/17 09:06 72 127/56 01/12/17 07:51 Room Air 01/12/17 07:00 97.7 18 95 97.7 01/11/17 20:00 2.0 Intake and Output 01/13/17 06:59 Intake Total 250 ml Balance 250 ml Intake Oral 250 ml Physical Exam Physical Exam general: pleasant, conversational, sitting upright in bed HEENT: EOMI, moist mucous membranes, no JVD Cardiac: Regular rate and rhythm without murmur rubs or gallops Resp: Clear lung sounds bilaterally; no increased work of breathing Ext: warm, no clubbing, cyanosis or edema Assessment Assessment Assessment and Plan Mr Mcmanus is a 76 year old male who was admitted with flash pulmonary edema and fluid overload. -ESRD--on HD, last dialyzed yesterday; placement of tunnel cath yesterday -Fluid overload--volume status has improved with diuresis and HD; appears euvolemic on physical exam today -CHF--Echocardiogram completed; shows The LV Ejection Fraction is 45%. There is moderate asymmetric septal left ventricular hypertrophy. Transmitral Doppler flow pattern is Grade I-abnormal relaxation pattern. The left atrium is mildly dilated. The right atrium size is normal. Doppler and Color Flow revealed trace aortic regurgitation. Doppler and Color-flow revealed trace mitral regurgitation. Doppler and Color Flow revealed physiological tricuspid regurgitation. The PA pressure was estimated at 30 mmHg. Doppler and Color Flow revealed mild pulmonic valvular regurgitation. There is a trace of pericardial effusion. The pt may be discharged soon when OK with the other services. Comment Review of Relevant I have reviewed the following items noelle (where applicable) has been applied. Labs Laboratory Tests Test 01/11/17 05:14 01/11/17 09:00 01/12/17 04:15 White Blood Count 11.6 x10^3/uL (4.0-11.0) 14.5 x10^3/uL (4.0-11.0) Red Blood Count 2.88 x10^6/uL (4.30-5.70) 3.41 x10^6/uL (4.30-5.70) Hemoglobin 8.4 g/dL (13.0-17.5) 9.9 g/dL (13.0-17.5) Hematocrit 25.3 % (39.0-53.0) 29.8 % (39.0-53.0) Mean Corpuscular Volume 88 fL (79-100) 88 fL (79-100) Mean Corpuscular Hemoglobin 29 pg (25-35) 29 pg (25-35) Mean Corpuscular Hemoglobin Concent 33 g/dL (31-37) 33 g/dL (31-37) Red Cell Distribution Width 14.1 % (11.5-14.5) 13.9 % (11.5-14.5) Platelet Count 237 x10^3/uL (140-400) 314 x10^3/uL (140-400) Neutrophils (%) (Auto) 76 % (31-73) 74 % (31-73) Lymphocytes (%) (Auto) 11 % (24-48) 14 % (24-48) Monocytes (%) (Auto) 11 % (0-9) 10 % (0-9) Eosinophils (%) (Auto) 2 % (0-3) 2 % (0-3) Basophils (%) (Auto) 0 % (0-3) 0 % (0-3) Neutrophils # (Auto) 8.8 x10^3uL (1.8-7.7) 10.7 x10^3uL (1.8-7.7) Lymphocytes # (Auto) 1.2 x10^3/uL (1.0-4.8) 2.0 x10^3/uL (1.0-4.8) Monocytes # (Auto) 1.3 x10^3/uL (0.0-1.1) 1.4 x10^3/uL (0.0-1.1) Eosinophils # (Auto) 0.2 x10^3/uL (0.0-0.7) 0.3 x10^3/uL (0.0-0.7) Basophils # (Auto) 0.0 x10^3/uL (0.0-0.2) 0.1 x10^3/uL (0.0-0.2) Sodium Level 138 mmol/L (136-145) 137 mmol/L (136-145) Potassium Level 3.3 mmol/L (3.5-5.1) 3.4 mmol/L (3.5-5.1) Chloride Level 99 mmol/L (98-107) 96 mmol/L (98-107) Carbon Dioxide Level 25 mmol/L (21-32) 31 mmol/L (21-32) Anion Gap 14 (6-14) 10 (6-14) Blood Urea Nitrogen 63 mg/dL (8-26) 39 mg/dL (8-26) Creatinine 7.1 mg/dL (0.7-1.3) 5.9 mg/dL (0.7-1.3) Estimated GFR (Cockcroft-Gault) 7.6 9.4 Glucose Level 121 mg/dL (70-99) 102 mg/dL (70-99) Calcium Level 7.9 mg/dL (8.5-10.1) 8.2 mg/dL (8.5-10.1) Phosphorus Level 6.5 mg/dL (2.6-4.7) 6.1 mg/dL (2.6-4.7) Magnesium Level 2.1 mg/dL (1.8-2.4) 2.1 mg/dL (1.8-2.4) Albumin 2.5 g/dL (3.4-5.0) 3.0 g/dL (3.4-5.0) Prothrombin Time 13.5 SEC (11.7-14.0) Prothromb Time International Ratio 1.1 (0.8-1.1) Activated Partial Thromboplast Time 24 SEC (24-38) Laboratory Tests Test 01/12/17 04:15 White Blood Count 14.5 x10^3/uL (4.0-11.0) Red Blood Count 3.41 x10^6/uL (4.30-5.70) Hemoglobin 9.9 g/dL (13.0-17.5) Hematocrit 29.8 % (39.0-53.0) Mean Corpuscular Volume 88 fL (79-100) Mean Corpuscular Hemoglobin 29 pg (25-35) Mean Corpuscular Hemoglobin Concent 33 g/dL (31-37) Red Cell Distribution Width 13.9 % (11.5-14.5) Platelet Count 314 x10^3/uL (140-400) Neutrophils (%) (Auto) 74 % (31-73) Lymphocytes (%) (Auto) 14 % (24-48) Monocytes (%) (Auto) 10 % (0-9) Eosinophils (%) (Auto) 2 % (0-3) Basophils (%) (Auto) 0 % (0-3) Neutrophils # (Auto) 10.7 x10^3uL (1.8-7.7) Lymphocytes # (Auto) 2.0 x10^3/uL (1.0-4.8) Monocytes # (Auto) 1.4 x10^3/uL (0.0-1.1) Eosinophils # (Auto) 0.3 x10^3/uL (0.0-0.7) Basophils # (Auto) 0.1 x10^3/uL (0.0-0.2) Sodium Level 137 mmol/L (136-145) Potassium Level 3.4 mmol/L (3.5-5.1) Chloride Level 96 mmol/L (98-107) Carbon Dioxide Level 31 mmol/L (21-32) Anion Gap 10 (6-14) Blood Urea Nitrogen 39 mg/dL (8-26) Creatinine 5.9 mg/dL (0.7-1.3) Estimated GFR (Cockcroft-Gault) 9.4 Glucose Level 102 mg/dL (70-99) Calcium Level 8.2 mg/dL (8.5-10.1) Phosphorus Level 6.1 mg/dL (2.6-4.7) Magnesium Level 2.1 mg/dL (1.8-2.4) Albumin 3.0 g/dL (3.4-5.0) Microbiology 01/08/17 Blood Culture - Preliminary, Resulted NO GROWTH AFTER 4 DAYS 01/08/17 Urine Culture - Final, Complete 01/08/17 Urine Culture Result 1 ([facility]) - Final, Complete Medications Current Medications Sodium Chloride 1,000 ml @ 150 mls/hr CONT IV ; Start 01/08/17 at 02:15; Status UNV Piperacillin Sod/ Tazobactam Sod (Zosyn Per Pharmacy) 1 each PRN DAILY PRN MC SEE COMMENTS; Start 01/08/17 at 02:15; Stop 01/08/17 at 12:11; Status DC Vancomycin HCl (Vanco Per Pharmacy) 1 each PRN DAILY PRN MC SEE COMMENTS Last administered on 01/11/17 15:17; Start 01/08/17 at 02:15 Sodium Chloride 1,000 ml @ 150 mls/hr Q6H40M IV Last administered on 03:34; Start 01/08/17 at 02:30; Stop 01/08/17 at 10:58; Status DC Vancomycin HCl 1 each 1X ONCE MC ; Start 01/09/17 at 05:00; Stop 01/09/17 at 05:01; Status DC Piperacillin Sod/ Tazobactam Sod 2.25 gm/Sodium Chloride 50 ml @ 100 mls/hr Q8H IV Last administered on 01/12/17 04:34; Start 01/08/17 at 06:00 Furosemide (Lasix) 20 mg 1X ONCE IVP Last administered on 01/08/17 09:45; Start 01/08/17 at 09:45; Stop 01/08/17 at 09:46; Status DC Furosemide (Lasix) 80 mg 1X ONCE IVP Last administered on 01/08/17 10:30; Start 01/08/17 at 10:30; Stop 01/08/17 at 10:33; Status DC Sodium Bicarbonate 50 meq 1X ONCE IV Last administered on 01/08/17 11:19; Start 01/08/17 at 10:45; Stop 01/08/17 at 10:49; Status DC Sodium Bicarbonate 50 meq 1X ONCE IV Last administered on 01/08/17 11:19; Start 01/08/17 at 10:45; Stop 01/08/17 at 10:49; Status DC Bisacodyl (Dulcolax Supp) 10 mg PRN DAILY PRN MO CONSTIPATION; Start 01/08/17 at 10:45 Magnesium Sulfate/ Dextrose 50 ml @ 25 mls/hr PRN DAILY PRN IV for Mag < 1.7 on am labs; Start 01/08/17 at 10:45 Darbepoetin Conrado (Aranesp) 60 mcg WEEKLYHS SQ Last administered on 01/08/17 21:00; Start 01/08/17 at 21:00 Calcium Gluconate (Calcium Gluconate) 3,000 mg 1X ONCE IVP ; Start 01/08/17 at 10:45; Stop 01/08/17 at 10:46; Status UNV Lidocaine/Sodium Bicarbonate (Buffered Lidocaine 1%) 3 ml 1X ONCE IJ Last administered on 01/08/17 11:10; Start 01/08/17 at 10:45; Stop 01/08/17 at 10 :49; Status DC Heparin Sodium (Porcine) (Heparin Sodium) 2,400 unit 1X ONCE INT CAT Last administered on 01/08/17 11:10; Start 01/08/17 at 10:45; Stop 01/08/17 at 10 :49; Status DC Heparin Sodium/ Sodium Chloride 60 unit 1X ONCE IV Last administered on 11:10; Start 01/08/17 at 10:45; Stop 01/08/17 at 10:49; Status DC Heparin Sodium (Porcine) (Heparin Sodium) 10,000 unit STK-MED ONCE .ROUTE ; Start 01/08/17 at 10:43; Stop 01/08/17 at 10:44; Status DC Calcium Gluconate 3000 mg/Dextrose 130 ml @ 300 mls/hr ONCE ONCE IV Last administered on 01/08/17 11:19; Start 01/08/17 at 11:00; Stop 01/08/17 at 11 :25; Status DC Furosemide (Lasix) 80 mg TID IVP Last administered on 01/10/17 09:00; Start 01/08/17 at 14:00; Stop 01/10/17 at 09:01; Status DC Sodium Chloride 1,000 ml @ 1,000 mls/hr Q1H PRN IV hypotension; Start at 11:10; Stop 01/08/17 at 17:09; Status DC Albumin Human 200 ml @ 200 mls/hr 1X PRN PRN IV Hypotension; Start 01/08/17 at 11:15; Stop 01/08/17 at 17:14; Status DC Midodrine (Proamatine) 5 mg 1X ONCE PO ; Start 01/08/17 at 11:15; Stop at 11:16; Status DC Acetaminophen (Tylenol) 500 mg 1X PRN PRN PO MILD PAIN / TEMP; Start 01/08/17 at 11:15; Stop 01/09/17 at 11:14; Status DC Diphenhydramine HCl (Benadryl) 25 mg 1X PRN PRN IV ITCHING; Start 01/08/17 at 11:15; Stop 01/09/17 at 11:14; Status DC Diphenhydramine HCl (Benadryl) 25 mg 1X PRN PRN IV ITCHING; Start 01/08/17 at 11:15; Stop 01/09/17 at 11:14; Status DC Labetalol HCl (Normodyne) 10 mg PRN Q1HR PRN IVP SBP > 180; Start 01/08/17 at 11:15; Stop 01/09/17 at 11:14; Status DC Clonidine HCl (Catapres) 0.1 mg 1X PRN PRN PO SBP > 180; Start 01/08/17 at 11: 15; Stop 01/09/17 at 11:14; Status DC Sodium Chloride 1,000 ml @ 400 mls/hr Q2H30M PRN IV PATENCY; Start 01/08/17 at 11:10; Stop 01/08/17 at 23:09; Status DC Info (PHARMACY MONITORING -- do not chart) 1 each PRN DAILY PRN MC SEE COMMENTS ; Start 01/08/17 at 11:15; Stop 01/09/17 at 14:22; Status DC Aspirin (Ecotrin) 81 mg DAILY PO Last administered on 01/12/17 09:05; Start 01/08/17 at 14:00 Bisacodyl (Dulcolax Tab) 10 mg DAILY PO Last administered on 01/10/17 09:00; Start 01/08/17 at 14:00 Clonidine HCl (Catapres) 0.1 mg TID PO Last administered on 01/12/17 09:06; Start 01/08/17 at 14:00 Gabapentin (Neurontin) 600 mg TID PO Last administered on 01/10/17 20:03; Start 01/08/17 at 14:00; Stop 01/11/17 at 15:15; Status DC Losartan Potassium (Cozaar) 50 mg DAILY PO Last administered on 01/12/17 09: 06; Start 01/08/17 at 14:00 Atorvastatin Calcium (Lipitor) 5 mg QHS PO Last administered on 01/11/17 20: 46; Start 01/08/17 at 21:00 Heparin Sodium (Porcine) (Heparin Sq) 5,000 unit Q12HR SQ Last administered on 01/12/17 09:13; Start 01/08/17 at 21:00 Lactobacillus Rhamnosus (Culturelle) 1 cap BID PO Last administered on 20:50; Start 01/09/17 at 09:00; Stop 01/10/17 at 08:08; Status DC Sodium Chloride 1,000 ml @ 1,000 mls/hr Q1H PRN IV hypotension; Start at 08:07; Stop 01/09/17 at 14:06; Status DC Albumin Human 200 ml @ 200 mls/hr 1X PRN PRN IV Hypotension; Start 01/09/17 at 08:15; Stop 01/09/17 at 14:14; Status DC Sodium Chloride 1,000 ml @ 400 mls/hr Q2H30M PRN IV PATENCY; Start 01/09/17 at 08:07; Stop 01/09/17 at 20:06; Status DC Info (PHARMACY MONITORING -- do not chart) 1 each PRN DAILY PRN MC SEE COMMENTS ; Start 01/09/17 at 08:15 Heparin Sodium (Porcine) (Heparin Sq) 5,000 unit Q12HR SQ ; Start 01/09/17 at 21:00; Status UNV Famotidine (Pepcid) 20 mg Q48H PO Last administered on 01/11/17 20:47; Start 01/09/17 at 21:00 Sevelamer Carbonate (Renvela) 800 mg TIDWMEALS PO Last administered on 09:05; Start 01/09/17 at 12:00 Vancomycin HCl 500 mg/Dextrose 100 ml @ 100 mls/hr ONCE ONCE IV Last administered on 01/09/17 18:09; Start 01/09/17 at 16:00; Stop 01/09/17 at 16 :59; Status DC Lactobacillus Rhamnosus (Culturelle) 1 cap BID PO Last administered on 09:04; Start 01/11/17 at 21:00 Heparin Sodium (Porcine) (Heparin Sodium) 10,000 unit STK-MED ONCE .ROUTE ; Start 01/11/17 at 13:36; Stop 01/11/17 at 13:37; Status DC Lidocaine/ Epinephrine (Xylocaine 1%-Epi 1:100,000) 20 ml STK-MED ONCE .ROUTE ; Start 01/11/17 at 13:36; Stop 01/11/17 at 13:37; Status DC Heparin Sodium/ Sodium Chloride 500 ml @ As Directed STK-MED ONCE .ROUTE ; Start 01/11/17 at 13:36; Stop 01/11/17 at 13:37; Status DC Fentanyl Citrate (Fentanyl 2ml Vial) 100 mcg STK-MED ONCE .ROUTE ; Start at 13:48; Stop 01/11/17 at 13:49; Status DC Midazolam HCl (Versed) 2 mg STK-MED ONCE .ROUTE ; Start 01/11/17 at 13:48; Stop 01/11/17 at 13:49; Status DC Heparin Sodium/ Sodium Chloride 1,000 unit 1X ONCE IART Last administered on 01/11/17 14:17; Start 01/11/17 at 14:00; Stop 01/11/17 at 14:13; Status DC Lidocaine/ Epinephrine (Xylocaine 1%-Epi 1:100,000) 20 ml 1X ONCE INJ Last administered on 01/11/17 14:17; Start 01/11/17 at 14:00; Stop 01/11/17 at 14 :13; Status DC Heparin Sodium (Porcine) (Heparin Sodium) 3,800 unit 1X ONCE INT CAT Last administered on 01/11/17 14:17; Start 01/11/17 at 14:00; Stop 01/11/17 at 14 :13; Status DC Midazolam HCl (Versed) 2 mg 1X ONCE IV Last administered on 01/11/17 14:21; Start 01/11/17 at 14:30; Stop 01/11/17 at 14:31; Status DC Fentanyl Citrate (Fentanyl 2ml Vial) 100 mcg 1X ONCE IV Last administered on 01/11/17 14:22; Start 01/11/17 at 14:30; Stop 01/11/17 at 14:31; Status DC Vancomycin HCl 500 mg/Dextrose 100 ml @ 100 mls/hr QMWF IV Last administered on 01/11/17 19:11; Start 01/11/17 at 16:00 Gabapentin (Neurontin) 300 mg QMWF PO Last administered on 01/11/17 19:11; Start 01/11/17 at 16:00 Active Scripts Active Reported Vitamin C (Ascorbic Acid) 500 Mg Tab.chew 500 Mg PO DAILY Multivitamins (Multivitamin) 1 Each Tablet 1 Tab PO DAILY Fish Oil 1,000 Mg Capsule ([place]-3 Fatty Acids/Fish Oil) 1 Each Capsule 1 Each PO Pravastatin Sodium 20 Mg Tablet 1 Tab PO QHS Clonidine Hcl 0.1 Mg Tablet 0.1 Mg PO TID Dulcolax (Bisacodyl) 5 Mg Tablet.dr 2 Tab PO DAILY Aspir 81 (Aspirin) 81 Mg Tablet.dr 1 Tab PO DAILY Cephalexin 250 Mg Capsule 250 Mg PO BID Gabapentin 600 Mg Tablet 600 Mg PO TID Losartan-Hctz 50-12.5 Mg Tab (Losartan/Hydrochlorothiazide) 1 Each Tablet 1 Tab PO DAILY Vitals/I & O Vital Sign - Last 24 Hours 01/11/17 01/11/17 01/11/17 01/11/17 14:13 14:22 14:30 14:45 Temp 98.1 98.1 98.1 98.1 Pulse 73 72 71 Resp 16 B/P (MAP) 123/59 (80) 125/60 (81) Pulse Ox 94 94 96 96 O2 Delivery Nasal Cannula Room Air Nasal Cannula Nasal Cannula O2 Flow Rate 2.0 2.0 2.0 01/11/17 01/11/17 01/11/17 01/11/17 15:00 15:00 15:04 15:04 Temp 98.1 98.1 Pulse 72 72 72 Resp 19 B/P (MAP) 157/67 (97) 157/67 157/67 Pulse Ox 94 96 O2 Delivery Nasal Cannula Nasal Cannula O2 Flow Rate 2.0 2.0 01/11/17 01/11/17 01/11/17 01/11/17 15:15 15:45 16:15 17:15 Temp 98.1 98.1 98.1 98.1 98.1 98.1 98.1 98.1 Pulse 73 87 73 76 Resp 19 19 B/P (MAP) 141/64 (89) 138/56 (83) 112/53 (72) 104/55 (71) Pulse Ox 96 96 94 94 O2 Delivery Nasal Cannula Nasal Cannula Nasal Cannula Nasal Cannula O2 Flow Rate 2.0 2.0 2.0 2.0 01/11/17 01/11/17 01/11/17 01/11/17 18:15 19:27 20:00 20:46 Temp 98.1 99.0 98.1 99.0 Pulse 82 74 74 Resp 19 16 B/P (MAP) 125/56 (79) 110/56 (74) 110/56 Pulse Ox 96 96 O2 Delivery Nasal Cannula Room Air Room Air O2 Flow Rate 2.0 2.0 01/11/17 01/12/17 01/12/17 01/12/17 23:51 03:21 07:00 07:51 Temp 98.7 97.8 97.7 98.7 97.8 97.7 Pulse 66 69 68 Resp 16 16 18 B/P (MAP) 103/52 (69) 127/58 (81) 127/57 (80) Pulse Ox 99 97 95 O2 Delivery Room Air Room Air Room Air Room Air 01/12/17 01/12/17 09:06 09:06 Pulse 72 72 B/P (MAP) 127/56 127/56 Intake and Output 01/12/17 01/12/17 01/13/17 14:59 22:59 06:59 Intake Total 250 ml Balance 250 ml ÁLVARO ARIZMENDI MD Jan 12, 2017 09:34
[2017-01-12 11:00] VITALS: BP 144/45
--- NOTE | 2017-01-12 11:54 | PDOC ---
Renal-Progress Notes Subjective Notes Notes FEELS WELL History of Present Illness Hx of present illness NO CHANGE Vitals Vitals Vital Signs Date Time Temp Pulse Resp B/P (MAP) Pulse Ox O2 Delivery O2 Flow Rate FiO2 01/12/17 11:00 97.9 72 18 144/45 (78) 94 Room Air 97.9 01/11/17 20:00 2.0 Weight Weight [ ] I.O. Intake and Output Intake and Output 01/13/17 07:00 Intake Total 250 ml Balance 250 ml Intake Oral 250 ml Labs Labs Laboratory Tests Test 01/12/17 04:15 White Blood Count 14.5 x10^3/uL (4.0-11.0) Red Blood Count 3.41 x10^6/uL (4.30-5.70) Hemoglobin 9.9 g/dL (13.0-17.5) Hematocrit 29.8 % (39.0-53.0) Mean Corpuscular Volume 88 fL (79-100) Mean Corpuscular Hemoglobin 29 pg (25-35) Mean Corpuscular Hemoglobin Concent 33 g/dL (31-37) Red Cell Distribution Width 13.9 % (11.5-14.5) Platelet Count 314 x10^3/uL (140-400) Neutrophils (%) (Auto) 74 % (31-73) Lymphocytes (%) (Auto) 14 % (24-48) Monocytes (%) (Auto) 10 % (0-9) Eosinophils (%) (Auto) 2 % (0-3) Basophils (%) (Auto) 0 % (0-3) Neutrophils # (Auto) 10.7 x10^3uL (1.8-7.7) Lymphocytes # (Auto) 2.0 x10^3/uL (1.0-4.8) Monocytes # (Auto) 1.4 x10^3/uL (0.0-1.1) Eosinophils # (Auto) 0.3 x10^3/uL (0.0-0.7) Basophils # (Auto) 0.1 x10^3/uL (0.0-0.2) Sodium Level 137 mmol/L (136-145) Potassium Level 3.4 mmol/L (3.5-5.1) Chloride Level 96 mmol/L (98-107) Carbon Dioxide Level 31 mmol/L (21-32) Anion Gap 10 (6-14) Blood Urea Nitrogen 39 mg/dL (8-26) Creatinine 5.9 mg/dL (0.7-1.3) Estimated GFR (Cockcroft-Gault) 9.4 Glucose Level 102 mg/dL (70-99) Calcium Level 8.2 mg/dL (8.5-10.1) Phosphorus Level 6.1 mg/dL (2.6-4.7) Magnesium Level 2.1 mg/dL (1.8-2.4) Albumin 3.0 g/dL (3.4-5.0) Micro Micro Microbiology 01/08/17 Blood Culture - Preliminary, Resulted NO GROWTH AFTER 4 DAYS 01/08/17 Urine Culture - Final, Complete 01/08/17 Urine Culture Result 1 ([facility]) - Final, Complete Review of Systems Constitutional: yes: malaise, weakness, alert, oriented Ears/Nose/Throat: Yes: no symptom reported Eyes: Yes: no symptom reported Pulmonary: Yes no symptom reported Cardiovascular: Yes no symptom reported Gastrointestional: Yes: no symptom reported Genitourinary: Yes: no symptom reported Musculoskeletal: Yes: no symptom reported Skin: Yes no symptom reported Psychiatric/Neurological: Yes: no symptom reported Endocrine: Yes: no symptom reported Hematologic/Lymphatic: Yes: no symptom reported Physical Exam General Appearance: no apparent distress Skin: warm Respiratory: bilateral CTA Heart: S1S2 Abdomen: soft, bowel sounds present Genitourinary: bladder flat Extremities: pulses present, no edema Neurology: alert, oriented, follow commands Assessment Assessment IMP ESRD ANEMIA SEPSIS VOLUME OVERLOAD-BETTER SECONDARY HPTH S/P TDC PLAN ANTIBIOTICS CONT ARANESP CONT RENVELA BINDER OP HD BEING SET UP D/W CM UPDATED HD TOMORROW JELANI ROSENTHAL MD Jan 12, 2017 11:54
--- NOTE | 2017-01-12 13:36 | PDOC ---
PROGRESS NOTES Chief Complaint Chief Complaint Sepsis ESRD ASSESSMENT AND PLAN: 1. Sepsis: leukocytosis fluctuating. no fevers or focal sx. blood cult NGTD x4d. on empiric Zosyn and vanco, d/c 2. Fluid overload: improving with aggressive lasix IV and HD. clinically stable 3. ESRD: on HD 4. CHF: combined systolic (EF 45%) and diastolic (grade 1) on echo . Dr Alejandre following 5. Troponin leak: most likely 2/2 above. monitor 6. Anemia: inflammatory by iron labs, and renal failure induced. EPO with HD 7. ?UTI: had been on Keflex from home on arrival in ER. Urine cult NG 8. Prophylaxis: heparin SQ, H2B 9. Perm cath placement in AM in anticipation of D/C soon; SW to arrange O/P F/ U with renal History of Present Illness History of Present Illness doing well, no new issues Vitals Vitals Vital Signs Date Time Temp Pulse Resp B/P (MAP) Pulse Ox O2 Delivery O2 Flow Rate FiO2 01/12/17 11:00 97.9 72 18 144/45 (78) 94 Room Air 97.9 01/11/17 20:00 2.0 Physical Exam General: Alert, Oriented X3, Cooperative, No acute distress Heart: Regular rate Lungs: Clear Abdomen: Normal bowel sounds, Soft, No tenderness Extremities: No clubbing, No edema Skin: No rashes Labs LABS Laboratory Tests Test 01/12/17 04:15 White Blood Count 14.5 x10^3/uL (4.0-11.0) Red Blood Count 3.41 x10^6/uL (4.30-5.70) Hemoglobin 9.9 g/dL (13.0-17.5) Hematocrit 29.8 % (39.0-53.0) Mean Corpuscular Volume 88 fL (79-100) Mean Corpuscular Hemoglobin 29 pg (25-35) Mean Corpuscular Hemoglobin Concent 33 g/dL (31-37) Red Cell Distribution Width 13.9 % (11.5-14.5) Platelet Count 314 x10^3/uL (140-400) Neutrophils (%) (Auto) 74 % (31-73) Lymphocytes (%) (Auto) 14 % (24-48) Monocytes (%) (Auto) 10 % (0-9) Eosinophils (%) (Auto) 2 % (0-3) Basophils (%) (Auto) 0 % (0-3) Neutrophils # (Auto) 10.7 x10^3uL (1.8-7.7) Lymphocytes # (Auto) 2.0 x10^3/uL (1.0-4.8) Monocytes # (Auto) 1.4 x10^3/uL (0.0-1.1) Eosinophils # (Auto) 0.3 x10^3/uL (0.0-0.7) Basophils # (Auto) 0.1 x10^3/uL (0.0-0.2) Sodium Level 137 mmol/L (136-145) Potassium Level 3.4 mmol/L (3.5-5.1) Chloride Level 96 mmol/L (98-107) Carbon Dioxide Level 31 mmol/L (21-32) Anion Gap 10 (6-14) Blood Urea Nitrogen 39 mg/dL (8-26) Creatinine 5.9 mg/dL (0.7-1.3) Estimated GFR (Cockcroft-Gault) 9.4 Glucose Level 102 mg/dL (70-99) Calcium Level 8.2 mg/dL (8.5-10.1) Phosphorus Level 6.1 mg/dL (2.6-4.7) Magnesium Level 2.1 mg/dL (1.8-2.4) Albumin 3.0 g/dL (3.4-5.0) BAHMAN GONZALEZ MD Jan 12, 2017 13:36
[2017-01-12] MEDS: VANCOMYCIN PER PHARMACY MC PRN (14:45)
[2017-01-12 16:00] VITALS: BP 116/44
[2017-01-12 19:00] VITALS: BP 124/55
[2017-01-12] MEDS: ATORVASTATIN CALCIUM 10 MG TABLET. PO SCH (21:00)
[2017-01-12 23:44] VITALS: BP 125/45
[2017-01-13 03:57] VITALS: BP 123/58
[2017-01-13 06:07] LABS: BASO # 0.1 x10^3/uL (0.0-0.2); BASO % 0 % (0-3); EOS % 3 % (0-3); HEMATOCRIT 25.3 % (39.0-53.0); HEMOGLOBIN 8.4 g/dL (13.0-17.5); LYMPH # 1.4 x10^3/uL (1.0-4.8); LYMPH % 11 % (24-48); MEAN CORPUSCULAR HEMOGLOBIN 29 pg (25-35); MEAN CORPUSCULAR HGB CONC 33 g/dL (31-37); MEAN CORPUSCULAR VOLUME 88 fL (79-100); MONO % 10 % (0-9); NEUT % 75 % (31-73); PLATELET COUNT 255 x10^3/uL (140-400); RED BLOOD COUNT 2.89 x10^6/uL (4.30-5.70); RED CELL DISTRIBUTION WIDTH 14.2 % (11.5-14.5)
[2017-01-13 06:21] LABS: ALBUMIN 2.7 g/dL (3.4-5.0); CALCIUM 8.4 mg/dL (8.5-10.1); CREATININE 7.5 mg/dL (0.7-1.3); GFR 7.1; MAGNESIUM 2.2 mg/dL (1.8-2.4); POTASSIUM 3.1 mmol/L (3.5-5.1)
[2017-01-13 07:00] VITALS: BP 134/64
--- NOTE | 2017-01-13 08:49 | PDOC ---
PROGRESS NOTES Subjective Subjective Patient sitting upright in bed eating breakfast. denies chest pain and shortness of air. good appetite. no other complaints at this time Objective Objective Vital Signs Date Time Temp Pulse Resp B/P (MAP) Pulse Ox O2 Delivery O2 Flow Rate FiO2 01/13/17 08:00 Room Air 01/13/17 07:00 98.4 69 18 134/64 (87) 96 98.4 01/11/17 20:00 2.0 Intake and Output 01/14/17 07:00 Intake Total 250 ml Balance 250 ml Intake Oral 250 ml Physical Exam Physical Exam General: pleasant, conversational, sitting upright at bedside HEENT: EOMI, moist mucous membranes, no JVD, neck supple Heart: Regular rate and rhythm without murmur Resp: Clear to auscultation bilaterally, no increased work of breathing extremities: warm; no clubbing, cyanosis or edema Assessment Assessment Assessment and Plan Mr Mcmanus is a 76 year old male who was admitted with flash pulmonary edema and fluid overload. -ESRD--on HD, scheduled for dialysis today; still has some urine output; social work is working on dialysis placement for at home in [place]. -Fluid overload--volume status has improved with diuresis and HD; appears euvolemic on physical exam today -CHF--Echocardiogram completed; shows The LV Ejection Fraction is 45%. There is moderate asymmetric septal left ventricular hypertrophy. Transmitral Doppler flow pattern is Grade I-abnormal relaxation pattern. The left atrium is mildly dilated. The right atrium size is normal. Doppler and Color Flow revealed trace aortic regurgitation. Doppler and Color-flow revealed trace mitral regurgitation. Doppler and Color Flow revealed physiological tricuspid regurgitation. The PA pressure was estimated at 30 mmHg. Doppler and Color Flow revealed mild pulmonic valvular regurgitation. There is a trace of pericardial effusion. The pt may be discharged soon when OK with the other services. Comment Review of Relevant I have reviewed the following items noelle (where applicable) has been applied. Labs Laboratory Tests Test 01/11/17 09:00 01/12/17 04:15 01/13/17 05:00 Prothrombin Time 13.5 SEC (11.7-14.0) Prothromb Time International Ratio 1.1 (0.8-1.1) Activated Partial Thromboplast Time 24 SEC (24-38) White Blood Count 14.5 x10^3/uL (4.0-11.0) 13.0 x10^3/uL (4.0-11.0) Red Blood Count 3.41 x10^6/uL (4.30-5.70) 2.89 x10^6/uL (4.30-5.70) Hemoglobin 9.9 g/dL (13.0-17.5) 8.4 g/dL (13.0-17.5) Hematocrit 29.8 % (39.0-53.0) 25.3 % (39.0-53.0) Mean Corpuscular Volume 88 fL (79-100) 88 fL (79-100) Mean Corpuscular Hemoglobin 29 pg (25-35) 29 pg (25-35) Mean Corpuscular Hemoglobin Concent 33 g/dL (31-37) 33 g/dL (31-37) Red Cell Distribution Width 13.9 % (11.5-14.5) 14.2 % (11.5-14.5) Platelet Count 314 x10^3/uL (140-400) 255 x10^3/uL (140-400) Neutrophils (%) (Auto) 74 % (31-73) 75 % (31-73) Lymphocytes (%) (Auto) 14 % (24-48) 11 % (24-48) Monocytes (%) (Auto) 10 % (0-9) 10 % (0-9) Eosinophils (%) (Auto) 2 % (0-3) 3 % (0-3) Basophils (%) (Auto) 0 % (0-3) 0 % (0-3) Neutrophils # (Auto) 10.7 x10^3uL (1.8-7.7) 9.8 x10^3uL (1.8-7.7) Lymphocytes # (Auto) 2.0 x10^3/uL (1.0-4.8) 1.4 x10^3/uL (1.0-4.8) Monocytes # (Auto) 1.4 x10^3/uL (0.0-1.1) 1.3 x10^3/uL (0.0-1.1) Eosinophils # (Auto) 0.3 x10^3/uL (0.0-0.7) 0.4 x10^3/uL (0.0-0.7) Basophils # (Auto) 0.1 x10^3/uL (0.0-0.2) 0.1 x10^3/uL (0.0-0.2) Sodium Level 137 mmol/L (136-145) 136 mmol/L (136-145) Potassium Level 3.4 mmol/L (3.5-5.1) 3.1 mmol/L (3.5-5.1) Chloride Level 96 mmol/L (98-107) 96 mmol/L (98-107) Carbon Dioxide Level 31 mmol/L (21-32) 29 mmol/L (21-32) Anion Gap 10 (6-14) 11 (6-14) Blood Urea Nitrogen 39 mg/dL (8-26) 52 mg/dL (8-26) Creatinine 5.9 mg/dL (0.7-1.3) 7.5 mg/dL (0.7-1.3) Estimated GFR (Cockcroft-Gault) 9.4 7.1 Glucose Level 102 mg/dL (70-99) 104 mg/dL (70-99) Calcium Level 8.2 mg/dL (8.5-10.1) 8.4 mg/dL (8.5-10.1) Phosphorus Level 6.1 mg/dL (2.6-4.7) 7.0 mg/dL (2.6-4.7) Magnesium Level 2.1 mg/dL (1.8-2.4) 2.2 mg/dL (1.8-2.4) Albumin 3.0 g/dL (3.4-5.0) 2.7 g/dL (3.4-5.0) Laboratory Tests Test 01/13/17 05:00 White Blood Count 13.0 x10^3/uL (4.0-11.0) Red Blood Count 2.89 x10^6/uL (4.30-5.70) Hemoglobin 8.4 g/dL (13.0-17.5) Hematocrit 25.3 % (39.0-53.0) Mean Corpuscular Volume 88 fL (79-100) Mean Corpuscular Hemoglobin 29 pg (25-35) Mean Corpuscular Hemoglobin Concent 33 g/dL (31-37) Red Cell Distribution Width 14.2 % (11.5-14.5) Platelet Count 255 x10^3/uL (140-400) Neutrophils (%) (Auto) 75 % (31-73) Lymphocytes (%) (Auto) 11 % (24-48) Monocytes (%) (Auto) 10 % (0-9) Eosinophils (%) (Auto) 3 % (0-3) Basophils (%) (Auto) 0 % (0-3) Neutrophils # (Auto) 9.8 x10^3uL (1.8-7.7) Lymphocytes # (Auto) 1.4 x10^3/uL (1.0-4.8) Monocytes # (Auto) 1.3 x10^3/uL (0.0-1.1) Eosinophils # (Auto) 0.4 x10^3/uL (0.0-0.7) Basophils # (Auto) 0.1 x10^3/uL (0.0-0.2) Sodium Level 136 mmol/L (136-145) Potassium Level 3.1 mmol/L (3.5-5.1) Chloride Level 96 mmol/L (98-107) Carbon Dioxide Level 29 mmol/L (21-32) Anion Gap 11 (6-14) Blood Urea Nitrogen 52 mg/dL (8-26) Creatinine 7.5 mg/dL (0.7-1.3) Estimated GFR (Cockcroft-Gault) 7.1 Glucose Level 104 mg/dL (70-99) Calcium Level 8.4 mg/dL (8.5-10.1) Phosphorus Level 7.0 mg/dL (2.6-4.7) Magnesium Level 2.2 mg/dL (1.8-2.4) Albumin 2.7 g/dL (3.4-5.0) Microbiology 01/08/17 Blood Culture - Final, Complete NO GROWTH AFTER 5 DAYS 01/08/17 Urine Culture - Final, Complete 01/08/17 Urine Culture Result 1 (KADEEM) - Final, Complete Medications Current Medications Sodium Chloride 1,000 ml @ 150 mls/hr CONT IV ; Start 01/08/17 at 02:15; Status UNV Piperacillin Sod/ Tazobactam Sod (Zosyn Per Pharmacy) 1 each PRN DAILY PRN MC SEE COMMENTS; Start 01/08/17 at 02:15; Stop 01/08/17 at 12:11; Status DC Vancomycin HCl (Vanco Per Pharmacy) 1 each PRN DAILY PRN MC SEE COMMENTS Last administered on 01/12/17 14:45; Start 01/08/17 at 02:15; Stop 01/13/17 at 00 :14; Status DC Sodium Chloride 1,000 ml @ 150 mls/hr Q6H40M IV Last administered on 03:34; Start 01/08/17 at 02:30; Stop 01/08/17 at 10:58; Status DC Vancomycin HCl 1 each 1X ONCE MC ; Start 01/09/17 at 05:00; Stop 01/09/17 at 05:01; Status DC Piperacillin Sod/ Tazobactam Sod 2.25 gm/Sodium Chloride 50 ml @ 100 mls/hr Q8H IV Last administered on 01/12/17 21:01; Start 01/08/17 at 06:00; Stop 01/13/17 at 00:14; Status DC Furosemide (Lasix) 20 mg 1X ONCE IVP Last administered on 01/08/17 09:45; Start 01/08/17 at 09:45; Stop 01/08/17 at 09:46; Status DC Furosemide (Lasix) 80 mg 1X ONCE IVP Last administered on 01/08/17 10:30; Start 01/08/17 at 10:30; Stop 01/08/17 at 10:33; Status DC Sodium Bicarbonate 50 meq 1X ONCE IV Last administered on 01/08/17 11:19; Start 01/08/17 at 10:45; Stop 01/08/17 at 10:49; Status DC Sodium Bicarbonate 50 meq 1X ONCE IV Last administered on 01/08/17 11:19; Start 01/08/17 at 10:45; Stop 01/08/17 at 10:49; Status DC Bisacodyl (Dulcolax Supp) 10 mg PRN DAILY PRN [place] CONSTIPATION; Start 01/08/17 at 10:45 Magnesium Sulfate/ Dextrose 50 ml @ 25 mls/hr PRN DAILY PRN IV for Mag < 1.7 on am labs; Start 01/08/17 at 10:45 Darbepoetin Conrado (Aranesp) 60 mcg WEEKLYHS SQ Last administered on 01/08/17 21:00; Start 01/08/17 at 21:00 Calcium Gluconate (Calcium Gluconate) 3,000 mg 1X ONCE IVP ; Start 01/08/17 at 10:45; Stop 01/08/17 at 10:46; Status UNV Lidocaine/Sodium Bicarbonate (Buffered Lidocaine 1%) 3 ml 1X ONCE IJ Last administered on 01/08/17 11:10; Start 01/08/17 at 10:45; Stop 01/08/17 at 10 :49; Status DC Heparin Sodium (Porcine) (Heparin Sodium) 2,400 unit 1X ONCE INT CAT Last administered on 01/08/17 11:10; Start 01/08/17 at 10:45; Stop 01/08/17 at 10 :49; Status DC Heparin Sodium/ Sodium Chloride 60 unit 1X ONCE IV Last administered on 11:10; Start 01/08/17 at 10:45; Stop 01/08/17 at 10:49; Status DC Heparin Sodium (Porcine) (Heparin Sodium) 10,000 unit STK-MED ONCE .ROUTE ; Start 01/08/17 at 10:43; Stop 01/08/17 at 10:44; Status DC Calcium Gluconate 3000 mg/Dextrose 130 ml @ 300 mls/hr ONCE ONCE IV Last administered on 01/08/17 11:19; Start 01/08/17 at 11:00; Stop 01/08/17 at 11 :25; Status DC Furosemide (Lasix) 80 mg TID IVP Last administered on 01/10/17 09:00; Start 01/08/17 at 14:00; Stop 01/10/17 at 09:01; Status DC Sodium Chloride 1,000 ml @ 1,000 mls/hr Q1H PRN IV hypotension; Start at 11:10; Stop 01/08/17 at 17:09; Status DC Albumin Human 200 ml @ 200 mls/hr 1X PRN PRN IV Hypotension; Start 01/08/17 at 11:15; Stop 01/08/17 at 17:14; Status DC Midodrine (Proamatine) 5 mg 1X ONCE PO ; Start 01/08/17 at 11:15; Stop at 11:16; Status DC Acetaminophen (Tylenol) 500 mg 1X PRN PRN PO MILD PAIN / TEMP; Start 01/08/17 at 11:15; Stop 01/09/17 at 11:14; Status DC Diphenhydramine HCl (Benadryl) 25 mg 1X PRN PRN IV ITCHING; Start 01/08/17 at 11:15; Stop 01/09/17 at 11:14; Status DC Diphenhydramine HCl (Benadryl) 25 mg 1X PRN PRN IV ITCHING; Start 01/08/17 at 11:15; Stop 01/09/17 at 11:14; Status DC Labetalol HCl (Normodyne) 10 mg PRN Q1HR PRN IVP SBP > 180; Start 01/08/17 at 11:15; Stop 01/09/17 at 11:14; Status DC Clonidine HCl (Catapres) 0.1 mg 1X PRN PRN PO SBP > 180; Start 01/08/17 at 11: 15; Stop 01/09/17 at 11:14; Status DC Sodium Chloride 1,000 ml @ 400 mls/hr Q2H30M PRN IV PATENCY; Start 01/08/17 at 11:10; Stop 01/08/17 at 23:09; Status DC Info (PHARMACY MONITORING -- do not chart) 1 each PRN DAILY PRN MC SEE COMMENTS ; Start 01/08/17 at 11:15; Stop 01/09/17 at 14:22; Status DC Aspirin (Ecotrin) 81 mg DAILY PO Last administered on 01/12/17 09:05; Start 01/08/17 at 14:00 Bisacodyl (Dulcolax Tab) 10 mg DAILY PO Last administered on 01/10/17 09:00; Start 01/08/17 at 14:00 Clonidine HCl (Catapres) 0.1 mg TID PO Last administered on 01/12/17 21:00; Start 01/08/17 at 14:00 Gabapentin (Neurontin) 600 mg TID PO Last administered on 01/10/17 20:03; Start 01/08/17 at 14:00; Stop 01/11/17 at 15:15; Status DC Losartan Potassium (Cozaar) 50 mg DAILY PO Last administered on 01/12/17 09: 06; Start 01/08/17 at 14:00 Atorvastatin Calcium (Lipitor) 5 mg QHS PO Last administered on 01/12/17 21: 00; Start 01/08/17 at 21:00 Heparin Sodium (Porcine) (Heparin Sq) 5,000 unit Q12HR SQ Last administered on 01/12/17 21:03; Start 01/08/17 at 21:00 Lactobacillus Rhamnosus (Culturelle) 1 cap BID PO Last administered on 20:50; Start 01/09/17 at 09:00; Stop 01/10/17 at 08:08; Status DC Sodium Chloride 1,000 ml @ 1,000 mls/hr Q1H PRN IV hypotension; Start at 08:07; Stop 01/09/17 at 14:06; Status DC Albumin Human 200 ml @ 200 mls/hr 1X PRN PRN IV Hypotension; Start 01/09/17 at 08:15; Stop 01/09/17 at 14:14; Status DC Sodium Chloride 1,000 ml @ 400 mls/hr Q2H30M PRN IV PATENCY; Start 01/09/17 at 08:07; Stop 01/09/17 at 20:06; Status DC Info (PHARMACY MONITORING -- do not chart) 1 each PRN DAILY PRN MC SEE COMMENTS ; Start 01/09/17 at 08:15 Heparin Sodium (Porcine) (Heparin Sq) 5,000 unit Q12HR SQ ; Start 01/09/17 at 21:00; Status UNV Famotidine (Pepcid) 20 mg Q48H PO Last administered on 01/11/17 20:47; Start 01/09/17 at 21:00 Sevelamer Carbonate (Renvela) 800 mg TIDWMEALS PO Last administered on 17:17; Start 01/09/17 at 12:00 Vancomycin HCl 500 mg/Dextrose 100 ml @ 100 mls/hr ONCE ONCE IV Last administered on 01/09/17 18:09; Start 01/09/17 at 16:00; Stop 01/09/17 at 16 :59; Status DC Lactobacillus Rhamnosus (Culturelle) 1 cap BID PO Last administered on 21:00; Start 01/11/17 at 21:00 Heparin Sodium (Porcine) (Heparin Sodium) 10,000 unit STK-MED ONCE .ROUTE ; Start 01/11/17 at 13:36; Stop 01/11/17 at 13:37; Status DC Lidocaine/ Epinephrine (Xylocaine 1%-Epi 1:100,000) 20 ml STK-MED ONCE .ROUTE ; Start 01/11/17 at 13:36; Stop 01/11/17 at 13:37; Status DC Heparin Sodium/ Sodium Chloride 500 ml @ As Directed STK-MED ONCE .ROUTE ; Start 01/11/17 at 13:36; Stop 01/11/17 at 13:37; Status DC Fentanyl Citrate (Fentanyl 2ml Vial) 100 mcg STK-MED ONCE .ROUTE ; Start at 13:48; Stop 01/11/17 at 13:49; Status DC Midazolam HCl (Versed) 2 mg STK-MED ONCE .ROUTE ; Start 01/11/17 at 13:48; Stop 01/11/17 at 13:49; Status DC Heparin Sodium/ Sodium Chloride 1,000 unit 1X ONCE IART Last administered on 01/11/17 14:17; Start 01/11/17 at 14:00; Stop 01/11/17 at 14:13; Status DC Lidocaine/ Epinephrine (Xylocaine 1%-Epi 1:100,000) 20 ml 1X ONCE INJ Last administered on 01/11/17 14:17; Start 01/11/17 at 14:00; Stop 01/11/17 at 14 :13; Status DC Heparin Sodium (Porcine) (Heparin Sodium) 3,800 unit 1X ONCE INT CAT Last administered on 01/11/17 14:17; Start 01/11/17 at 14:00; Stop 01/11/17 at 14 :13; Status DC Midazolam HCl (Versed) 2 mg 1X ONCE IV Last administered on 01/11/17 14:21; Start 01/11/17 at 14:30; Stop 01/11/17 at 14:31; Status DC Fentanyl Citrate (Fentanyl 2ml Vial) 100 mcg 1X ONCE IV Last administered on 01/11/17 14:22; Start 01/11/17 at 14:30; Stop 01/11/17 at 14:31; Status DC Vancomycin HCl 500 mg/Dextrose 100 ml @ 100 mls/hr QMWF IV Last administered on 01/11/17 19:11; Start 01/11/17 at 16:00; Stop 01/13/17 at 00:14; Status DC Gabapentin (Neurontin) 300 mg QMWF PO Last administered on 01/11/17t 19:11; Start 01/11/17 at 16:00 Active Scripts Active Reported Vitamin C (Ascorbic Acid) 500 Mg Tab.chew 500 Mg PO DAILY Multivitamins (Multivitamin) 1 Each Tablet 1 Tab PO DAILY Fish Oil 1,000 Mg Capsule (Fletcher-3 Fatty Acids/Fish Oil) 1 Each Capsule 1 Each PO Pravastatin Sodium 20 Mg Tablet 1 Tab PO QHS Clonidine Hcl 0.1 Mg Tablet 0.1 Mg PO TID Dulcolax (Bisacodyl) 5 Mg Tablet.dr 2 Tab PO DAILY Aspir 81 (Aspirin) 81 Mg Tablet.dr 1 Tab PO DAILY Cephalexin 250 Mg Capsule 250 Mg PO BID Gabapentin 600 Mg Tablet 600 Mg PO TID Losartan-Hctz 50-12.5 Mg Tab (Losartan/Hydrochlorothiazide) 1 Each Tablet 1 Tab PO DAILY Vitals/I & O Vital Sign - Last 24 Hours 01/12/17 01/12/17 01/12/17 01/12/17 09:06 09:06 11:00 14:03 Temp 97.9 97.9 Pulse 72 72 72 73 Resp 18 B/P (MAP) 127/56 127/56 144/45 (78) 144/45 Pulse Ox 94 O2 Delivery Room Air 01/12/17 01/12/17 01/12/17 01/12/17 16:00 19:00 20:00 21:00 Temp 98.1 98.2 98.1 98.2 Pulse 71 69 66 Resp 18 17 B/P (MAP) 116/44 (68) 124/55 (78) 135/63 Pulse Ox 94 97 O2 Delivery Room Air Room Air Room Air 01/12/17 01/13/17 01/13/17 01/13/17 23:44 03:57 07:00 08:00 Temp 98.2 98.4 98.4 98.2 98.4 98.4 Pulse 62 69 69 Resp 18 16 18 B/P (MAP) 125/45 (71) 123/58 (79) 134/64 (87) Pulse Ox 96 97 96 O2 Delivery Room Air Room Air Room Air Room Air Intake and Output 01/13/17 01/13/17 01/14/17 15:00 23:00 07:00 Intake Total 250 ml Balance 250 ml ÁLVARO ARIZMENDI MD Jan 13, 2017 08:49
[2017-01-13] MEDS: cloNIDine HCL 0.1 MG TABLET PO SCH ×3 (09:00→21:00)
[2017-01-13] MEDS: BISACODYL 5 MG TABLET.DR. PO SCH (09:00)
[2017-01-13] MEDS: SEVELAMER CARBONATE 800 MG TABLET. PO SCH ×3 (09:27→17:59)
[2017-01-13 11:00] VITALS: BP 138/72
[2017-01-13] MEDS ORDERED: SEVE800T9 PO (11:29)
--- NOTE | 2017-01-13 11:56 | PDOC ---
Renal-Progress Notes Subjective Notes Notes NONE History of Present Illness Hx of present illness NO CHANGE Vitals Vitals Vital Signs Date Time Temp Pulse Resp B/P (MAP) Pulse Ox O2 Delivery O2 Flow Rate FiO2 01/13/17 08:00 Room Air 01/13/17 07:00 98.4 69 18 134/64 (87) 96 98.4 Weight Weight [ ] I.O. Intake and Output Intake and Output 01/14/17 07:00 Intake Total 250 ml Balance 250 ml Intake Oral 250 ml Labs Labs Laboratory Tests Test 01/13/17 05:00 White Blood Count 13.0 x10^3/uL (4.0-11.0) Red Blood Count 2.89 x10^6/uL (4.30-5.70) Hemoglobin 8.4 g/dL (13.0-17.5) Hematocrit 25.3 % (39.0-53.0) Mean Corpuscular Volume 88 fL (79-100) Mean Corpuscular Hemoglobin 29 pg (25-35) Mean Corpuscular Hemoglobin Concent 33 g/dL (31-37) Red Cell Distribution Width 14.2 % (11.5-14.5) Platelet Count 255 x10^3/uL (140-400) Neutrophils (%) (Auto) 75 % (31-73) Lymphocytes (%) (Auto) 11 % (24-48) Monocytes (%) (Auto) 10 % (0-9) Eosinophils (%) (Auto) 3 % (0-3) Basophils (%) (Auto) 0 % (0-3) Neutrophils # (Auto) 9.8 x10^3uL (1.8-7.7) Lymphocytes # (Auto) 1.4 x10^3/uL (1.0-4.8) Monocytes # (Auto) 1.3 x10^3/uL (0.0-1.1) Eosinophils # (Auto) 0.4 x10^3/uL (0.0-0.7) Basophils # (Auto) 0.1 x10^3/uL (0.0-0.2) Sodium Level 136 mmol/L (136-145) Potassium Level 3.1 mmol/L (3.5-5.1) Chloride Level 96 mmol/L (98-107) Carbon Dioxide Level 29 mmol/L (21-32) Anion Gap 11 (6-14) Blood Urea Nitrogen 52 mg/dL (8-26) Creatinine 7.5 mg/dL (0.7-1.3) Estimated GFR (Cockcroft-Gault) 7.1 Glucose Level 104 mg/dL (70-99) Calcium Level 8.4 mg/dL (8.5-10.1) Phosphorus Level 7.0 mg/dL (2.6-4.7) Magnesium Level 2.2 mg/dL (1.8-2.4) Albumin 2.7 g/dL (3.4-5.0) Micro Micro Microbiology 01/08/17 Blood Culture - Final, Complete NO GROWTH AFTER 5 DAYS 01/08/17 Urine Culture - Final, Complete 01/08/17 Urine Culture Result 1 (KADEEM) - Final, Complete Review of Systems Constitutional: yes: malaise, weakness, alert, oriented Ears/Nose/Throat: Yes: no symptom reported Eyes: Yes: no symptom reported Pulmonary: Yes no symptom reported Cardiovascular: Yes no symptom reported Gastrointestional: Yes: no symptom reported Genitourinary: Yes: no symptom reported Musculoskeletal: Yes: no symptom reported Skin: Yes no symptom reported Psychiatric/Neurological: Yes: no symptom reported Endocrine: Yes: no symptom reported Hematologic/Lymphatic: Yes: no symptom reported Physical Exam General Appearance: no apparent distress Skin: warm Respiratory: bilateral CTA Heart: S1S2 Abdomen: soft, bowel sounds present Genitourinary: bladder flat Extremities: pulses present, no edema Neurology: alert, oriented, follow commands Assessment Assessment IMP ESRD ANEMIA SEPSIS VOLUME OVERLOAD-BETTER SECONDARY HPTH S/P TDC PLAN ANTIBIOTICS CONT ARANESP CONT RENVELA BINDER HD TODAY UF TO DW D/C TODAY AFTER HD OP HD IN [place] HAS BEEN SET UP JELANI ROSENTHAL MD Jan 13, 2017 11:56
[2017-01-13] MEDS ORDERED: IV NORMAL SALINE 1000ML BAG 1,000 ML IV PRN ×2 (11:58)
[2017-01-13] MEDS ORDERED: DIALYSIS PATIENT. MC PRN (12:00)
[2017-01-13] MEDS ORDERED: 0.9 % SODIUM CHLORIDE 10 ML DISP.SYRIN. IV PRN ×2 (12:00)
[2017-01-13] MEDS: LACTOBACILLUS RHAMNOSUS GG 1 CAPSULE. PO SCH ×2 (17:57→21:00)
[2017-01-13] MEDS: ASPIRIN ENTERIC COATED 81 MG TABLET.DR. PO SCH (17:58)
[2017-01-13] MEDS: GABAPENTIN 300 MG CAPSULE. PO SCH (17:58)
[2017-01-13] MEDS: LOSARTAN POTASSIUM 50 MG TABLET. PO SCH (17:59)
[2017-01-13] MEDS: HEPARIN PF for SUB-Q USE 5,000 UNIT/0.5 ML VIAL. SQ SCH ×2 (17:59→21:00)
[2017-01-13 19:00] VITALS: BP 142/67
[2017-01-13] MEDS ORDERED: ONDANSETRON ODT 4 MG TAB.RAPDIS. PO PRN (20:30)
[2017-01-13] MEDS ORDERED: ONDANSETRON PF 4 MG/2 ML VIAL. IV PRN (20:30)
[2017-01-13] MEDS: ATORVASTATIN CALCIUM 10 MG TABLET. PO SCH (21:00)
[2017-01-13] MEDS: FAMOTIDINE 20 MG TABLET. PO SCH (21:00)
--- NOTE | 2017-01-15 19:06 | DS ---
DATE OF DISCHARGE: 01/13/2017 CHIEF COMPLAINT: Sepsis, end-stage renal disease. HOSPITAL COURSE: The patient is a 76-year-old gentleman who was visiting from [place] with known history of stage 4-5 chronic renal failure who presented to the Emergency Room with signs of sepsis. He was aggressively fluid hydrated in the Emergency Room, which unfortunately related to fluid overload requiring BiPAP as well as emergent dialysis to deal with the fluid. He recovered well. In further workup, Cardiology was involved and he was shown to have systolic as well as diastolic CHF with an EF of 45. A troponin leak was attributed to this as well as fluid overload on admission. For his anemia, he was started on Epo and low dose iron. A urinalysis was obtained at admission as he had been on outpatient antibiotics for a week prior to presentation. UA and culture; however, in hospital were negative. For his sepsis, no blood cultures showed growth after 4 days. The empiric antibiotics were therefore discontinued on the fifth day. He received a Perm-A-Cath in anticipation of further dialysis, which was arranged with his Nephrology in [place]. DISCHARGE DATE: 01/13/2017. PHYSICAL EXAMINATION: VITAL SIGNS: Show a blood pressure of 134/64, heart rate of 69, respiratory rate at 18. He is afebrile. GENERAL: He is alert and oriented, no acute distress. LUNGS: Clear. HEART: Has regular rate and rhythm without any murmurs. ABDOMEN: Has positive bowel sounds. EXTREMITIES: Show no edema. DISCHARGE DIAGNOSES: End-stage renal disease, fluid overload, congestive heart failure, diastolic and systolic, acute on chronic. DISCHARGE DISPOSITION: To home. DISCHARGE CONDITION: Improved. DISCHARGE MEDICATIONS: Please refer to MAR. DISCHARGE INSTRUCTIONS: The patient will follow up with his stretch box tender as arranged. BAHMAN GONZALEZ MD DR: TINY/nts JOB#: [id number] / [id number] EVONNE
== END 2017-01-13 21:15 | disposition home or self-care (01) | DRG 871 ==
LOC: 1 WEST ICU 01-08 01:39 → EDBD 01-08 01:39 → 2 SOUTH 01-09 15:35
PROVIDERS: ADMIT Internal Medicine; ATTEND Internal Medicine
PROC: 02HV33Z Insertion of Infusion Device into Superior Vena Cava, Percutaneous Approach (ICD-10-PCS; principal; 2017-01-08)
PROC: B548ZZA Ultrasonography of Superior Vena Cava, Guidance (ICD-10-PCS; 2017-01-08)
PROC: 5A09357 Assistance with Respiratory Ventilation, Less than 24 Consecutive Hours, Continuous Positive Airway Pressure (ICD-10-PCS; 2017-01-08)
PROC: 5A1D70Z Performance of Urinary Filtration, Intermittent, Less than 6 Hours Per Day (ICD-10-PCS; 2017-01-08)
PROC: 5A1D70Z Performance of Urinary Filtration, Intermittent, Less than 6 Hours Per Day (ICD-10-PCS; 2017-01-09)
PROC: 02H633Z Insertion of Infusion Device into Right Atrium, Percutaneous Approach (ICD-10-PCS; 2017-01-11)
PROC: B2141ZZ Fluoroscopy of Right Heart using Low Osmolar Contrast (ICD-10-PCS; 2017-01-11)
PROC: 0JH60XZ Insertion of Tunneled Vascular Access Device into Chest Subcutaneous Tissue and Fascia, Open Approach (ICD-10-PCS; 2017-01-11)
PROC: 02PYX3Z Removal of Infusion Device from Great Vessel, External Approach (ICD-10-PCS; 2017-01-11)
PROC: 5A1D70Z Performance of Urinary Filtration, Intermittent, Less than 6 Hours Per Day (ICD-10-PCS; 2017-01-11)
PROC: 5A1D70Z Performance of Urinary Filtration, Intermittent, Less than 6 Hours Per Day (ICD-10-PCS; 2017-01-13)
DX: A41.9 Sepsis, unspecified organism (principal); N18.6 End stage renal disease; I13.2 Hypertensive heart and chronic kidney disease with heart failure and with stage 5 chronic kidney disease, or end stage renal disease; N17.9 Acute kidney failure, unspecified; E83.51 Hypocalcemia; I07.1 Rheumatic tricuspid insufficiency; I50.40 Unspecified combined systolic (congestive) and diastolic (congestive) heart failure; N39.0 Urinary tract infection, site not specified; D64.9 Anemia, unspecified; E78.5 Hyperlipidemia, unspecified; G47.30 Sleep apnea, unspecified; K59.09 Other constipation; I37.1 Nonrheumatic pulmonary valve insufficiency; N40.1 Benign prostatic hyperplasia with lower urinary tract symptoms; Z83.3 Family history of diabetes mellitus; Z87.440 Personal history of urinary (tract) infections; Z90.79 Acquired absence of other genital organ(s); Z99.2 Dependence on renal dialysis; Z88.8 Allergy status to other drugs, medicaments and biological substances
CPT/HCPCS: 36415; 36556; 36558; 71010; 76770; 76937; 77001; 80048; 80069; 80074; 80202; 81001; 82728; 82805; 83540; 83550; 83605; 83735; 83970; 84484; 85007; 85025; 85045; 85610; 85730; 86704; 86706; 87040; 87086; 87641; 93005; 93306; 99152; 99153; C1750; C1769; C1892; J0610; J0881; J1644; J2250; J2543; J3010; J3370; J3490; J7030; Q0162